=== PATIENT | female | born 1940 | race Caucasian/White ===

== ENCOUNTER 2017-06-23 19:08 | Inpatient (IN) | payer MEDICARE, OTHER ==
[~2017-06-23] VITALS: Ht 162.6 cm; Wt 101.2 kg
[2017-06-23] VITALS: BP 150/80
--- NOTE | 2017-06-23 19:23 | NUR ---
76 YO FEMALE BB FAMILY. PT IS ALERT X 3, PER FAMILY PT HAS HAD RIGHT LOWER LEG WEAKNESS SINCE 8AM WITH SLURRED SPEECH. PT AMBULATED TO ER BED 3 WITH STEADY GAIT WITH USE OF WALKER. PT IS MOVING ALL AXTREMITIES FREELY, AWAITING ORDERS FROM PROVIDER
[2017-06-23 19:36] LABS: BASOPHILS % (AUTO) 0.5 % (0.0-2.0); EOSINOPHILS # (AUTO) 0.1 /CMM (0.0-0.7); HEMATOCRIT 40 % (33-45); HEMOGLOBIN 13.1 g/dL (11.5-14.8); LYMPHOCYTES # (AUTO) 1.2 /CMM (0.8-4.8); LYMPHOCYTES % (AUTO) 25.8 % (20.0-44.0); MEAN CORPUSCULAR HEMOGLOBIN 28 PG (26.0-33.0); MEAN CORPUSCULAR HGB CONC 33 g/dl (31.0-36.0); MEAN CORPUSCULAR VOLUME 84 fL (82-100); MONOCYTES # (AUTO) 0.4 /CMM (0.1-1.30); MONOCYTES % (AUTO) 7.9 % (2.0-12.0); NEUTROPHILS # (AUTO) 3.1 /CMM (1.8-8.9); NEUTROPHILS % (AUTO) 63.8 % (43.0-81.0); PLATELET COUNT (AUTO) 168 /CMM (150-450); RDW COEFFICIENT OF VARIATION 13.6 (11.5-15.0); WHITE BLOOD COUNT (AUTO) 4.8 K/uL (4.3-11.0)
[2017-06-23 19:44] LABS: CALCIUM, SERUM 8.8 mg/dL (8.5-10.1); CARBON DIOXIDE 28 mmol/L (21-32); CHLORIDE 107 mmol/L (98-107); GLUCOSE 109 mg/dL (74-106); POTASSIUM 4.2 mmol/L (3.5-5.1); SODIUM SERUM 142 mmol/L (136-145); UREA NITROGEN, BLOOD 23 mg/dL (7-18)
--- NOTE | 2017-06-23 19:45 | NUR ---
RADIOLOGY TEAM AT BED SIDE FOR CHEST X RAY
[2017-06-23 19:48] LABS: INR 0.96 (0.87-1.13)
[2017-06-23 19:56] LABS: TROPONIN I < 0.017 ng/mL (0.00-0.056)
--- NOTE | 2017-06-23 20:01 | NUR ---
PT TRANSPORTED TO CT VIA GURNEY BY RADIOLOGY TEAM
--- NOTE | 2017-06-23 20:21 | NUR ---
VITAL SIGNS UPDATED.
--- NOTE | 2017-06-23 20:42 | NUR ---
PAGED FORREST NICHOLSON DNP FOR PANEL ADMISSION
[2017-06-23] MEDS ORDERED: ASPIRIN 325 MG TABLET PO ONE (21:00)
[2017-06-23] MEDS ORDERED: ASPIRIN 325 MG TABLET ONE (21:15)
[2017-06-23 21:30] VITALS: BP 147/88
--- NOTE | 2017-06-23 21:37 | NUR ---
TRANSPORTWED PT TO TELE BED WITHOUT INCIDENT
[2017-06-23 21:45] VITALS: BP 147/88
--- NOTE | 2017-06-23 21:45 | NUR ---
PLANNING ENGINEER NOTE RECEIVED PATIENT AWAKE ALERT AND ORIENTED IN BED. DAUGHTER AND GRAND-DAUGHTER AT BEDSIDE. NO SOB OR RESPIRATORY DISTRESS NOTED. ASSESSED PATIENT THOROUGHLY. PER PATIENT, HER RIGHT LEG AND RIGHT HAND HAS BEEN TINGLING SINCE THIS MORNING, ALL EXTREMITIES STRONG. SLIGHT RIGHT SIDED DYSMETRIA WHEN ASKED TO TOUCH FINGER TO NOSE. SMILE IS SYMMETRICAL. NO DROOPING NOTED. NON PITTING EDEMA NOTED TO BILATERAL LEGS AND FEET. IV SITE INTACT WITH NO REDNESS NOTED. SKIN INTACT, WITH NO BREAKDOWN OR BRUISING NOTED. ALL BELONGINGS CHECKED AND ACCOUNTED FOR. MEDICATION RECONCILIATION DONE. ORIENTED TO ROOM AND TO UNIT. BED LOCKED AND IN LOWEST POSITION. SIDE RAILS UP, CALL LIGHT WITHIN REACH.
--- NOTE | 2017-06-23 22:00 | NUR ---
POLICE RECORDS CLERK NOTE PER FORREST NICHOLSON, DO NOT GIVE ANY CHEMICAL PROPHYLAXIS FOR 48HRS.
[2017-06-23] MEDS ORDERED: FLUT1DIS3 INH (22:09)
[2017-06-23] MEDS ORDERED: DICL100G3 TP (22:09)
[2017-06-23] MEDS ORDERED: METO-304 PO (22:09)
[2017-06-23] MEDS ORDERED: SOLI10TA PO (22:09)
[2017-06-23] MEDS ORDERED: TRAM50TA2 PO (22:09)
[2017-06-23] MEDS ORDERED: ESCI20TA PO (22:09)
[2017-06-23] MEDS ORDERED: DEXL60CA3 PO (22:09)
[2017-06-23] MEDS ORDERED: MEMA10TA PO (22:09)
[2017-06-23] MEDS ORDERED: AMLO1CAP9 PO (22:09)
[2017-06-23] MEDS ORDERED: FURO20TA4 PO (22:09)
--- NOTE | 2017-06-23 22:15 | NUR ---
AUTO PHONE INSTALLER NOTE DR. FORREST NICHOLSON AT BEDSIDE.
--- NOTE | 2017-06-23 22:35 | NUR ---
WORKERS COMPENSATION CLAIMS ADJUSTER NOTE CODE STROKE CALLED PER FORREST NICHOLSON. ACTIVATED. DISTRICT GAUGER, ER STAFF, CODE STROKE TEAM ARRIVED. NEED STAT CTA.
--- NOTE | 2017-06-23 22:40 | NUR ---
CLASSIFIER OPERATOR NOTE CHARGE NURSE PLACED CALL TO [facility]. INFORMATION GIVEN.
[2017-06-23 22:45] VITALS: BP 145/75
--- NOTE | 2017-06-23 22:45 | NUR ---
MACHINE SOLE LEVELER NOTE NECESSARY INFORMATION, LABS, AND CT RESULTS FAXED TO [facility]. PATIENT LEFT FOR CTA.
--- NOTE | 2017-06-23 23:00 | NUR ---
AUTOMOTIVE FLEET SUPERVISOR NOTE PER [facility]ATSON, CCT, FAX RESULTS OF CTA ONCE AVAILABLE.
[2017-06-23] MEDS ORDERED: CT SWABBABLE VALVE TRANS SET 1 EA INFUS.SET MC ONE (23:07)
[2017-06-23] MEDS ORDERED: IOHEXOL-350 100 ML VIAL IV ONE (23:07)
[2017-06-23] MEDS ORDERED: IV NS 0.9% 250 ML IV ONE (23:07)
--- NOTE | 2017-06-23 23:25 | NUR ---
FUEL ATTENDANT NOTE PATIENT STILL IN NUCLEAR MEDICINE.
--- NOTE | 2017-06-23 23:30 | NUR ---
CAMPUS RECRUITING INTERN NOTE PATIENT CAME BACK FROM CTA. RESULTS PENDING.
[2017-06-23 23:31] LABS: BASOPHILS % (AUTO) 0.6 % (0.0-2.0); EOSINOPHILS # (AUTO) 0.1 /CMM (0.0-0.7); EOSINOPHILS % (AUTO) 2.3 % (0.0-6.0); HEMATOCRIT 37 % (33-45); HEMOGLOBIN 12.2 g/dL (11.5-14.8); LYMPHOCYTES # (AUTO) 1.4 /CMM (0.8-4.8); LYMPHOCYTES % (AUTO) 30.9 % (20.0-44.0); MEAN CORPUSCULAR HEMOGLOBIN 28 PG (26.0-33.0); MEAN CORPUSCULAR HGB CONC 33 g/dl (31.0-36.0); MEAN CORPUSCULAR VOLUME 84 fL (82-100); MONOCYTES # (AUTO) 0.4 /CMM (0.1-1.30); MONOCYTES % (AUTO) 8.6 % (2.0-12.0); NEUTROPHILS # (AUTO) 2.6 /CMM (1.8-8.9); NEUTROPHILS % (AUTO) 57.6 % (43.0-81.0); PLATELET COUNT (AUTO) 151 /CMM (150-450); RDW COEFFICIENT OF VARIATION 14.1 (11.5-15.0); WHITE BLOOD COUNT (AUTO) 4.6 K/uL (4.3-11.0)
[2017-06-23 23:42] LABS: CALCIUM, SERUM 8.5 mg/dL (8.5-10.1); CARBON DIOXIDE 27 mmol/L (21-32); CHLORIDE 110 mmol/L (98-107); CREATININE 0.8 mg/dL (0.6-1.3); GLUCOSE 103 mg/dL (74-106); POTASSIUM 4.2 mmol/L (3.5-5.1); SODIUM SERUM 145 mmol/L (136-145); UREA NITROGEN, BLOOD 21 mg/dL (7-18)
[2017-06-23 23:46] LABS: INR 0.96 (0.87-1.13); PROTHROMBIN TIME 10.3 SECS (9.5-12.7)
[2017-06-23 23:51] LABS: TROPONIN I < 0.017 ng/mL (0.00-0.056)
--- NOTE | 2017-06-24 00:05 | NUR ---
COUNSELING DIRECTOR NOTE CALLED XRAY. NO RESULTS YET.
--- NOTE | 2017-06-24 00:35 | NUR ---
VEHICLE WASHER NOTE PER ICU CHARGE NURSE, SHE SPOKE TO FORREST NICHOLSON. HE IS AWARE OF CTA RESULTS, AND SPOKE TO [facility] NEUROLOGIST. NO FURTHER ORDERS RECEIVED AT THIS TIME. AWAITING FOR FORREST NICHOLSON TO INSERT MIDLINE.
--- NOTE | 2017-06-24 01:10 | NUR ---
WASTE MACHINE OFFBEARER NOTE FORREST NICHOLSON INSERTED MIDLINE 10CM TO LEFT BASILIC ARTERY AT BEDSIDE. PATIENT TOLERATED WELL.
[2017-06-24] MEDS ORDERED: ONDANSETRON HCL/PF 4 MG/2 ML VIAL IVP PRN (02:00)
[2017-06-24] MEDS ORDERED: TRAMADOL HCL 50 MG TABLET PO PRN (02:00)
[2017-06-24] MEDS ORDERED: Z GUARD REMEDY 2 OZ OINT TP PRN (02:00)
[2017-06-24] MEDS ORDERED: ACETAMINOPHEN 325 MG TABLET PO PRN (02:00)
[2017-06-24 04:00] VITALS: BP 123/67
[2017-06-24] MEDS: IV NS 0.9% 1,000 ML IV PRN ×2 (05:46→22:13)
--- NOTE | 2017-06-24 06:30 | NUR ---
MICROSOFT BI DEVELOPER NOTE PATIENT STABLE. NO DEFICITS NOTED. NO SLURRED SPEECH. PATIENT ABLE TO AMBULATE TO BATHROOM WITH ASSISTANCE. WILL ENDORSE TO DAY SHIFT FOR CUAUHTEMOC.
[2017-06-24 07:04] LABS: APPEARANCE,URINE CLEAR (CLEAR); BILIRUBIN,URINE NEGATIVE (NEGATIVE); BLOOD, URINE NEGATIVE Ery/uL (NEGATIVE); COLOR,URINE YELLOW (YELLOW); KETONES,URINE NEGATIVE (NEGATIVE); LEUKOCYTE ESTERASE ,URINE NEGATIVE (NEGATIVE); NITRITE, URINE NEGATIVE (NEGATIVE); PROTEIN,URINE NEGATIVE (NEGATIVE); UGLUCOSE NEGATIVE (NEGATIVE); UROBILINOGEN,URINE 0.2 EU/dL (0.2)
--- NOTE | 2017-06-24 07:10 | NUR ---
DRAWER WAXER NOTES PATIENT ALERT AND ORIENTED X4, SPEAKS MALAY, NO SLURRED SPEECH NOTED, NO FACIAL DROOPING, ALL EXTREMITIES WNL, NOT IN ANY DISTRESS NOTED, IVF INFUSING AND TOLERATING WELL, NEEDS ATTENDED AND MET, CALL LIGHT WITHIN REACH, LOW BED AND LOCKED, SIDERAILS X2 UP, WILL CONTINUE TO MONITOR.
--- NOTE | 2017-06-24 07:40 | NUR ---
MANAGER PEDIATRIC NOTES PATIENT SEEN AND EXAMINED BY DR. PALUMBO.
[2017-06-24 08:21] LABS: THYROID STIMULATING HORMONE 8.224 uIU/mL (0.358-3.74)
[2017-06-24] MEDS: BENAZEPRIL HCL 20 MG TABLET PO SCH (08:56)
[2017-06-24] MEDS: ASPIRIN EC 81 MG TABLET.DR PO SCH (08:56)
[2017-06-24] MEDS: FLUTICASONE/VILANTEROL 1 EACH BLST.W.DEV IH SCH (08:56)
[2017-06-24] MEDS: MEMANTINE HCL 5 MG TABLET PO SCH ×3 (08:57→17:08)
[2017-06-24] MEDS: METOPROLOL SUCCINATE 50 MG TAB.SR.24H PO SCH (08:57)
[2017-06-24] MEDS: ESCITALOPRAM OXALATE (10 MG) 10 MG TABLET PO SCH (08:57)
[2017-06-24] MEDS: AMLODIPINE BESYLATE 5 MG TABLET PO SCH (08:57)
[2017-06-24] MEDS: OXYBUTYNIN CHLORIDE 5 MG TABLET PO SCH ×3 (08:57→17:08)
[2017-06-24] MEDS: ATORVASTATIN 40 MG TABLET PO SCH (09:00)
[2017-06-24] MEDS ORDERED: FUROSEMIDE 20 MG TABLET PO SCH (09:00)
--- NOTE | 2017-06-24 11:02 | NUR ---
Social service consult requested by Dr. Ruiz for TIA. Pt. is a 76 year old female who was admitted to [facility] on . Pt. is Bulgarian speaking. BART met with pt's daughter Barbara alva. According the Kelly, this is patient's first stroke. Pt. lives alone. Pt's is . Pt. has two daughters Barbara and Yo. Pt. has family support from both her daughters. Pt. does not want to go to a prison facility and would like to go home with home health. BART informed Barbara she will inform lining caser Kristine regarding their discharge plan. No other social service needs are required at this time. SW is available if needed. BART informed lining caser Kristine regarding pt. wanting to go home with home health.
[2017-06-24 12:00] VITALS: BP 149/79
--- NOTE | 2017-06-24 14:00 | NUR ---
MEDICAL SALES SPECIALIST NOTES RECEIVED MRI RESULT AND CALLED DR. KEITH, LEFT A MESSAGE WITH HER OFFICE STAFF, ALSO INFORMED DR. ZAVALETA, AWAITING FOR ORDERS. PATIENT ALERT AND ORIENTED X3, NO DISTRESS NOTED, STROKE SCALE COMPLETED, NO CHANGES, NO APHASIA/ SLURRING OF THE SPEECH NOTED, NO FACIAL DROOPING, MOTOR FUNCTIONS INTACT, SENSORY MILD LOSS ON RIGHT ARM, ALL NEEDS ATTENDED AND MET, CALL LIGHT WITHIN REACH, FAMILY AT BEDSIDE, SAFETY PRECAUTIONS OBSERVED, WILL CONTINUE TO MONITOR.
[2017-06-24 16:02] VITALS: BP 149/73
--- NOTE | 2017-06-24 17:20 | NUR ---
SPECIAL POLICE NOTES STROKE PREVENTION EDUCATION DISCUSSED WITH FAMILY AND PATIENT.
--- NOTE | 2017-06-24 18:38 | NUR ---
COLLEGE INTERN NOTES PATIENT ALERT AND ORIENTED, NO DISTRESS NOTED, FAMILY AT BEDSIDE, DISCUSSED STROKE PREVENTION EDUCATION, DENIES PAIN OR HEADACHE AT THIS TIME, NO SOB NOTED, ON O2 AT 2LPM VIA NC TO KEEP O2SAT 92%, ALL DUE MEDICATIONS PROVIDED, PATIENT REFUSED NAMENDA, ALL NEEDS ATTENDED, RECEIVED ASSISTANCE WITH ADLS, CALL LIGHT WITHIN REACH, SAFETY PRECAUTIONS IN PLACED, WILL ENDORSE TO CIRCULAR TANK COOPER FOR CUAUHTEMOC.
--- NOTE | 2017-06-24 19:30 | NUR ---
RN NOTES RECEIVED PATIENT IN BED AWAKE, AO X 3, ABLE TO MAKE NEEDS KNOWN. NO ACUTE DISTRESS NOTED. DENIES ANY PAIN AT THIS TIME. IV SITE PATENT, INTACT; IVF INFUSING ORDERED. SAFETY REMINDERS GIVEN. ON LOW BED WITH BILATERAL UPPER SIDE RAILS UP. BED ALARM ON. CALL LIGHT WITHIN EASY REACH. WILL CONTINUE TO MONITOR. Addendum: 06/25/17 at 0556 by DANIELLE UMANZOR RN TELE READING SR HR 60 WITH BBB
[2017-06-24 20:00] VITALS: BP 118/75
[2017-06-24] MEDS ORDERED: SENNOSIDES 8.6 MG TABLET ONE (21:43)
[2017-06-24] MEDS: SENNOSIDES 8.6 MG TABLET PO SCH (22:07)
[2017-06-25] VITALS (8 sets, daily range): BP systolic 120–133; BP diastolic 60–79
--- NOTE | 2017-06-25 06:22 | NUR ---
RN NOTES PATIENT IN BED WITH EYES CLOSED; RESPIRATIONS EVEN. NO SIGNS OF PAIN NOTED. DUE MEDS GIVEN WITH NO ASE NOTED. NEEDS ATTENDED. SAFETY PRECAUTIONS AND COMFORT MEASURES IN PLACE. WILL GIVE REPORT TO DAY SHIFT FOR CONTINUITY OF CARE.
[2017-06-25 06:49] LABS: BASOPHILS % (AUTO) 0.3 % (0.0-2.0); EOSINOPHILS # (AUTO) 0.1 /CMM (0.0-0.7); EOSINOPHILS % (AUTO) 2.7 % (0.0-6.0); HEMATOCRIT 37 % (33-45); HEMOGLOBIN 12.2 g/dL (11.5-14.8); LYMPHOCYTES # (AUTO) 1.3 /CMM (0.8-4.8); LYMPHOCYTES % (AUTO) 27.6 % (20.0-44.0); MEAN CORPUSCULAR HEMOGLOBIN 28 PG (26.0-33.0); MEAN CORPUSCULAR HGB CONC 33 g/dl (31.0-36.0); MEAN CORPUSCULAR VOLUME 84 fL (82-100); MONOCYTES # (AUTO) 0.4 /CMM (0.1-1.30); MONOCYTES % (AUTO) 9.1 % (2.0-12.0); NEUTROPHILS # (AUTO) 2.7 /CMM (1.8-8.9); NEUTROPHILS % (AUTO) 60.3 % (43.0-81.0); PLATELET COUNT (AUTO) 136 /CMM (150-450); RDW COEFFICIENT OF VARIATION 14.6 (11.5-15.0); RED BLOOD CELL COUNT(AUTO) 4.35 MIL/uL (4.0-5.2); WHITE BLOOD COUNT (AUTO) 4.6 K/uL (4.3-11.0)
[2017-06-25 07:21] LABS: ALANINE AMINOTRANSFERASE 29 U/L (12-78); ALBUMIN 3.1 g/dL (3.4-5.0); ALKALINE PHOSPHATASE 86 U/L (46-116); ASPARTATE AMINOTRANSFERASE 20 U/L (15-37); BILIRUBIN,TOTAL 0.5 mg/dL (0.2-1.0); CALCIUM, SERUM 8.1 mg/dL (8.5-10.1); CARBON DIOXIDE 27 mmol/L (21-32); CHLORIDE 109 mmol/L (98-107); CREATININE 0.8 mg/dL (0.6-1.3); GLUCOSE 98 mg/dL (74-106); MAGNESIUM 1.8 mg/dL (1.8-2.4); PHOSPHORUS 3.7 mg/dL (2.5-4.9); POTASSIUM 4.3 mmol/L (3.5-5.1); SODIUM SERUM 144 mmol/L (136-145); TOTAL PROTEIN, SERUM 6.1 g/dL (6.4-8.2); UREA NITROGEN, BLOOD 15 mg/dL (7-18)
[2017-06-25 07:23] LABS: CHOLESTEROL 184 mg/dL (<200); HDL CHOLESTEROL 43 mg/dL (40-60); LDL 123 mg/dL (0-99); THYROID STIMULATING HORMONE 6.197 uIU/mL (0.358-3.74); TRIGLYCERIDES 127 mg/dL (30-150)
--- NOTE | 2017-06-25 07:45 | NUR ---
PHARMACY GENERAL MANAGER NOTES PATIENT ALERT AND ORIENTED, NOT IN ANY DISTRESS, NO SOB NOTED, EATING BREAKFAST AND TOLERATING WELL, COMPLAINTS OF HEADACHE 1/10, ABLE TO TOLERATE WITHOUT ANY PAIN MEDICATION AT THIS TIME, NEEDS ATTENDED AND MET, CALL LIGHT WITHIN REACH, SAFETY MEASURES IN PLACED, WILL CONTINUE TO MONITOR.
[2017-06-25] MEDS: ESCITALOPRAM OXALATE (10 MG) 10 MG TABLET PO SCH (08:48)
[2017-06-25] MEDS: FLUTICASONE/VILANTEROL 1 EACH BLST.W.DEV IH SCH (08:48)
[2017-06-25] MEDS: OXYBUTYNIN CHLORIDE 5 MG TABLET PO SCH ×3 (08:48→17:18)
[2017-06-25] MEDS: ASPIRIN EC 81 MG TABLET.DR PO SCH (08:48)
[2017-06-25] MEDS: BENAZEPRIL HCL 20 MG TABLET PO SCH (08:49)
[2017-06-25] MEDS: METOPROLOL SUCCINATE 50 MG TAB.SR.24H PO SCH (08:49)
[2017-06-25] MEDS: AMLODIPINE BESYLATE 5 MG TABLET PO SCH (08:50)
[2017-06-25] MEDS: MEMANTINE HCL 5 MG TABLET PO SCH ×2 (08:51→17:00)
[2017-06-25] MEDS: ATORVASTATIN 40 MG TABLET PO SCH (09:28)
--- NOTE | 2017-06-25 11:39 | NUR ---
RN MS NOTES RECEIVED A NEW ORDER FROM DR. ZAVALETA TO START PATIENT ON LOVENOX 40MG QD, ORDER NOTED AND CARRIED OUT.
[2017-06-25] MEDS: ENOXAPARIN SODIUM 40 MG/0.4 ML DISP.SYRIN SQ SCH (12:19)
[2017-06-25] MEDS ORDERED: MAGNESIUM HYDROXIDE 30 ML UDC PO ONE (12:30)
[2017-06-25] MEDS ORDERED: MAGNESIUM HYDROXIDE 30 ML UDC PO PRN (12:30)
--- NOTE | 2017-06-25 18:30 | NUR ---
RN MS NOTES PATIENT ALERT AND ORIENTED, NO DISTRESS NOTED, FAMILY AT BEDSIDE, STROKE PREVENTION TEACHING DONE, DENIES PAIN OR HEADACHE AT THIS TIME, NO SOB NOTED, IN ROOM AIR WITH SPO2 93%-94%, PER PATIENT AND FAMILY, SHE'S REFUSING TO GO TO REHAB TOMORROW AND PREFERS TO BE DISCHARGED HOME, ALL DUE MEDICATIONS PROVIDED, PATIENT REFUSED NAMENDA, ALL NEEDS ATTENDED, RECEIVED ASSISTANCE WITH ADLS, CALL LIGHT WITHIN REACH, SAFETY PRECAUTIONS IN PLACED, WILL ENDORSE TO LEAD NUCLEAR MEDICINE TECHNOLOGIST FOR CUAUHTEMOC.
--- NOTE | 2017-06-25 19:30 | NUR ---
RN NOTES RECEIVED PATIENT IN BED AWAKE, AO X 3, ABLE TO MAKE NEEDS KNOWN. NO ACUTE DISTRESS NOTED. DENIES ANY PAIN AT THIS TIME. RJ MIDLINE PATENT, INTACT; FLUSHED. SAFETY REMINDERS GIVEN. ON LOW BED WITH BILATERAL UPPER SIDE RAILS UP. BED ALARM ON. CALL LIGHT WITHIN EASY REACH. WILL CONTINUE TO MONITOR. FAMILY AT BEDSIDE.
[2017-06-25] MEDS: SENNOSIDES 8.6 MG TABLET PO SCH (22:00)
--- NOTE | 2017-06-26 06:25 | NUR ---
RN NOTES PATIENT IN BED WITH EYES CLOSED; RESPIRATIONS EVEN. NO SIGNS OF PAIN NOTED. NEEDS ATTENDED. KEPT CLEAN, DRY AND COMFORTABLE. SAFETY PRECAUTIONS AND COMFORT MEASURES IN PLACE. WILL GIVE REPORT TO DAY SHIFT FOR CONTINUITY OF CARE.
--- NOTE | 2017-06-26 07:10 | NUR ---
RN Initial Notes: Received patient resting in bed. Patient alert oriented x4. Non-labored breathing noted. No signs of distress. Midline on left upper arm patent and intact. Patient on room air. Bed in lowest/locked position. Call light within reach. Will continue to monitor.
[2017-06-26 08:00] VITALS: BP 136/70
[2017-06-26] MEDS: FLUTICASONE/VILANTEROL 1 EACH BLST.W.DEV IH SCH (09:02)
[2017-06-26] MEDS: OXYBUTYNIN CHLORIDE 5 MG TABLET PO SCH (09:03)
[2017-06-26] MEDS: ATORVASTATIN 40 MG TABLET PO SCH (09:03)
[2017-06-26] MEDS: ASPIRIN EC 81 MG TABLET.DR PO SCH (09:03)
[2017-06-26] MEDS: BENAZEPRIL HCL 20 MG TABLET PO SCH (09:04)
[2017-06-26] MEDS: MEMANTINE HCL 5 MG TABLET PO SCH (09:05)
[2017-06-26] MEDS: ESCITALOPRAM OXALATE (10 MG) 10 MG TABLET PO SCH (09:05)
[2017-06-26] MEDS: METOPROLOL SUCCINATE 50 MG TAB.SR.24H PO SCH (09:05)
[2017-06-26 09:20] VITALS: BP 136/70
[2017-06-26] MEDS: AMLODIPINE BESYLATE 5 MG TABLET PO SCH (09:20)
[2017-06-26] MEDS: ENOXAPARIN SODIUM 40 MG/0.4 ML DISP.SYRIN SQ SCH (09:23)
[2017-06-26] MEDS ORDERED: ATOR40TA PO (10:13)
[2017-06-26] MEDS ORDERED: ASPI-991 PO (10:13)
--- NOTE | 2017-06-26 12:35 | NUR ---
MS RN CLOSING NOTES Patient discharged home per MD orders. Patient stable. Non-labored breathing noted. Patient denies pain. Valuables given to patient. Discharge instructions and medication list given to patient. Patient and son educated on following up with primary care provider within 1 week, educated on medication list, and educated on signs and symptoms of stroke. Midline taken out. No adverse reactions noted. Prescription given to son and patient Patient refused to have picture taken of bruise. Patient educated on vaccines. Patient refused the pneumococcal vaccine. Patient left with son.
== END 2017-06-26 12:32 | disposition home health service (06) | DRG 64 ==
LOC: ER 19:11 → TELE 20:39 → MED 06-25 16:00
PROVIDERS: ADMIT Nurse Practitioner Acute Care; ATTEND Nurse Practitioner Acute Care
PROC: 05HC33Z Insertion of Infusion Device into Left Basilic Vein, Percutaneous Approach (ICD-10-PCS; principal; 2017-06-24)
PROC: B54NZZA Ultrasonography of Left Upper Extremity Veins, Guidance (ICD-10-PCS; 2017-06-24)
DX: I63.9 Cerebral infarction, unspecified (principal); N17.0 Acute kidney failure with tubular necrosis; I50.32 Chronic diastolic (congestive) heart failure; E44.0 Moderate protein-calorie malnutrition; G81.91 Hemiplegia, unspecified affecting right dominant side; E03.9 Hypothyroidism, unspecified; E78.5 Hyperlipidemia, unspecified; E66.01 Morbid (severe) obesity due to excess calories; I49.5 Sick sinus syndrome; I11.0 Hypertensive heart disease with heart failure; Z91.81 History of falling; Z68.38 Body mass index [BMI] 38.0-38.9, adult; Z82.49 Family history of ischemic heart disease and other diseases of the circulatory system
CPT/HCPCS: 36415; 36569; 70450-TC; 70496-TC; 70498-TC; 70551-TC; 71010-TC; 80048-TC; 80053-TC; 80061-TC; 81000-TC; 82306; 82728-TC; 82962-TC; 83540-TC; 83735-TC; 84100-TC; 84439-TC; 84443-TC; 84484-TC; 85025-TC; 85730-TC; 86850-TC; 87081-TC; 92521; 93307-TC; A4606; J1650; J7030; J7050; Q9967; Z7610

== ENCOUNTER 2020-09-25 13:49 | Inpatient (IN) | payer MEDICARE, OTHER ==
[~2020-09-25] VITALS: Ht 157.5 cm; Wt 90.7 kg
[~2020-09-25 13:49] MED LIST: AMLO-102 PO; ASPI-1420 PO; ATOR40TA PO; DEXL60CA3 PO; DICL100G16 TP; ESCI20TA PO; FLUT1DIS3 INH; FURO20TA4 PO; MEMA10TA PO; METO-357 PO; SOLI10TA2 PO; TRAM50TA2 PO
--- NOTE | 2020-09-25 14:55 | NUR ---
BIBDAUGTHER FROM HOME TO ER BED 5. AAOX4. NOT IN RESP DISTRESS, BREATHING EVEN AND UNLABORED. BROUGHT IN FOR SORE THROAT, BODY ACHE AND FEVER. PT IS AFEBRILE UPON PRESENTATION. PT IS ALSO NOTED WITH PRODUCTIVE COUGH. DAUGHTER REPORTS THAT SHE HAS BEEN LIKE THIS FOR THE PAST 2 DAYS. WAS AT THE BEDSIDE FOR EVAL. ORDERS RECEIVED, NOTED AND CARRIED OUT. IV LINE ESTABLISHED ON L AC 20G. BLOOD DRAWN AND GIVEN TO PETROLOGIST AT BEDSIDE. PT PLACED ON MONITOR.
[2020-09-25 14:58] LABS: BASOPHILS % (AUTO) 0.4 % (0.0-2.0); EOSINOPHILS % (AUTO) 0.1 % (0.0-6.0); HEMATOCRIT 37 % (33-45); LYMPHOCYTES # (AUTO) 0.8 /CMM (0.8-4.8); LYMPHOCYTES % (AUTO) 27.7 % (20.0-44.0); MEAN CORPUSCULAR HGB CONC 33 g/dl (31.0-36.0); MEAN CORPUSCULAR VOLUME 87 fL (82-100); MONOCYTES # (AUTO) 0.3 /CMM (0.1-1.30); MONOCYTES % (AUTO) 11.3 % (2.0-12.0); NEUTROPHILS # (AUTO) 1.8 /CMM (1.8-8.9); NEUTROPHILS % (AUTO) 60.5 % (43.0-81.0); PLATELET COUNT (AUTO) 108 /CMM (150-450); RED BLOOD CELL COUNT(AUTO) 4.22 MIL/uL (4.0-5.2)
--- NOTE | 2020-09-25 14:58 | NUR ---
COVID SWAB DONE AND SENT TO LAB
[2020-09-25 15:20] LABS: CALCIUM, SERUM 8.4 mg/dL (8.5-10.1); CREATININE 0.9 mg/dL (0.6-1.3); POTASSIUM 3.7 mmol/L (3.5-5.1)
[2020-09-25] MEDS ORDERED: AZITHROMYCIN 500 MG in IV D5W 250 ML IV ONE (17:30)
[2020-09-25] MEDS ORDERED: CEFTRIAXONE 1 G in IV D5W 50 ML IV ONE (17:30)
--- NOTE | 2020-09-25 17:49 | NUR ---
CALLED NURSING SUP FOR TELE BED.
--- NOTE | 2020-09-25 17:57 | NUR ---
DAUGHTER NARDA NOTIFIED THAT THE HER MOM IS STAYING IN THE HOSPITAL
--- NOTE | 2020-09-25 18:21 | NUR ---
BED 103
[2020-09-25] MEDS ORDERED: ONDANSETRON HCL/PF 4 MG/2 ML VIAL IVP PRN (18:30)
[2020-09-25] MEDS ORDERED: MAGNESIUM HYDROXIDE 30 ML UDC PO PRN (18:30)
[2020-09-25] MEDS ORDERED: MAG HYDROX/AL HYDROX/SIMETH 30 ML UDC PO PRN (18:30)
[2020-09-25] MEDS ORDERED: Z GUARD REMEDY 2 OZ OINT TP PRN (18:30)
[2020-09-25] MEDS ORDERED: ERGO500014 PO (18:32)
[2020-09-25] MEDS ORDERED: ASPI-1420 PO (18:32)
[2020-09-25] MEDS ORDERED: LEVO50TA8 PO (18:32)
--- NOTE | 2020-09-25 18:32 | NUR ---
report given to stephanie arcos. awaiting transfer to floor.
[2020-09-25] MEDS ORDERED: OMEP1CAP25 PO (18:33)
--- NOTE | 2020-09-25 19:14 | NUR ---
PT TRANSPORTED TO UNIT ON [facility] WITH EMT AND RN AT BEDSIDE W/ ACLS PROTOCOL. NAD NOTED WHILE BEING TRANSPORTED. PT AMBULATED FROM GURNEY TO BED.
--- NOTE | 2020-09-25 19:30 | NUR ---
part time flexible clerkreceiving dock checker note Admitted a 80yrs old female with admitting dx of covid 19 pneumonia. Pt fullcode with nkda. Pt a/o x4 . Divehi speaking. Can understand a little of dutch. Breathing even and unlabored with no sob or acute distress noted. Denies any pain or discomfort. Left ac #20 patent and intact. Skin intact. Belongings inventory done. Spoke with pharmacy that patient is taking vesicare and volcaren gel and to brings meds from home. Spoke with Daugther regarding medication and per daughter her mother doesn't take the meds and she doesn' t have to be on the meds while in the hospital. Pharmacy notified. Pt comfortable in bed. All needs rendered. Call light within reach. Srx2 up. Will continue to monitor.
[2020-09-25 20:00] VITALS: BP 159/82
[2020-09-25] MEDS: ENOXAPARIN SODIUM 40 MG/0.4 ML DISP.SYRIN SQ SCH (20:47)
[2020-09-25] MEDS ORDERED: DICLOFENAC TOPICAL 100 GM GEL..GM. TP SCH (21:00)
[2020-09-25 22:22] LABS: D-DIMER 0.87 mg/L(FEU (0.17-0.50)
[2020-09-26] VITALS: BP 120/69
[2020-09-26 04:00] VITALS: BP 149/60
[2020-09-26 06:33] LABS: BASOPHILS % (AUTO) 0.3 % (0.0-2.0); HEMATOCRIT 36 % (33-45); LYMPHOCYTES # (AUTO) 0.8 /CMM (0.8-4.8); LYMPHOCYTES % (AUTO) 31.1 % (20.0-44.0); MEAN CORPUSCULAR HGB CONC 33 g/dl (31.0-36.0); MEAN CORPUSCULAR VOLUME 85 fL (82-100); MONOCYTES # (AUTO) 0.2 /CMM (0.1-1.30); MONOCYTES % (AUTO) 7.8 % (2.0-12.0); NEUTROPHILS # (AUTO) 1.5 /CMM (1.8-8.9); NEUTROPHILS % (AUTO) 60.8 % (43.0-81.0); PLATELET COUNT (AUTO) 97 /CMM (150-450); RED BLOOD CELL COUNT(AUTO) 4.24 MIL/uL (4.0-5.2); WHITE BLOOD COUNT (AUTO) 2.5 K/uL (4.3-11.0)
--- NOTE | 2020-09-26 06:41 | NUR ---
leadership program internship closing note Patient in bed, sleeping but easily arousable. A/0 x4. Breathing even and unlabored with no sob or acute distress noted. Denies any pain or discomfort. Left ac 20 patent and intact. All needs rendered. Call light within reach. Srx2 up. Bed in lowest position. Will endorse to am nurse for continuity of care.
[2020-09-26 07:25] LABS: ALBUMIN 3.2 g/dL (3.4-5.0); BILIRUBIN,DIRECT 0.1 mg/dL (0.0-0.2); BILIRUBIN,TOTAL 0.3 mg/dL (0.2-1.0); CALCIUM, SERUM 8.3 mg/dL (8.5-10.1); CREATININE 0.8 mg/dL (0.6-1.3); TOTAL PROTEIN, SERUM 6.6 g/dL (6.4-8.2)
--- NOTE | 2020-09-26 07:30 | NUR ---
RN OPENING NOTE PATIENT RECEIVED IN BED, RESTING. NO S/S OF DISTRESS AT THIS TIME. PATIENT IS ALERT/ORIENTED X4, VIETNAMESE SPEAKING. ABLE TO MAKE NEEDS KNOWN. TELE READING SHOWS SR BBB WITH HR IN 80S. PATIENT CONTINUES ON CARDIAC DIET. SKIN INTACT. L AC #20G IV INTACT AND PATENT, NO S/S OF INFECTION AT THIS TIME. ALL SAFETY MEASURES IN PLACE PER HOSPITAL POLICY, BED LOCKED IN LOWEST POSITION. CALL LIGHT WITHIN REACH. WILL CONTINUE TO MONITOR AND PROVIDE CARE.
[2020-09-26 07:37] LABS: THYROID STIMULATING HORMONE 2.202 uIU/mL (0.358-3.74)
[2020-09-26 08:00] VITALS: BP 129/71
[2020-09-26] MEDS: ESCITALOPRAM OXALATE (10 MG) 10 MG TABLET PO SCH (08:52)
[2020-09-26] MEDS: BENAZEPRIL HCL 20 MG TABLET PO SCH (08:52)
[2020-09-26] MEDS: MEMANTINE HCL 5 MG TABLET PO SCH ×2 (08:52→16:29)
[2020-09-26] MEDS: METOPROLOL SUCCINATE 50 MG TAB.SR.24H PO SCH (08:52)
[2020-09-26] MEDS: ASPIRIN EC 81 MG TABLET.DR PO SCH (08:53)
[2020-09-26] MEDS: ATORVASTATIN 40 MG TABLET PO SCH (08:53)
[2020-09-26] MEDS: AMLODIPINE BESYLATE 5 MG TABLET PO SCH (08:53)
[2020-09-26] MEDS: PANTOPRAZOLE 40 MG TABLET.DR PO SCH (08:53)
[2020-09-26] MEDS: FUROSEMIDE 20 MG TABLET PO SCH (08:53)
[2020-09-26] MEDS ORDERED: Medication Not On Formulary EA (Solifenacin Succinate (Vesicare) 1 TAB) PO SCH (09:00)
[2020-09-26] MEDS ORDERED: FLUTICASONE/SALMETEROL 1 DISK IH SCH (09:00)
[2020-09-26] MEDS: HYDROCODONE/APAP 5/325MG TABLET PO PRN (09:07)
[2020-09-26] MEDS: FLUTICASONE/VILANTEROL 1 EACH BLST.W.DEV IH SCH (09:48)
[2020-09-26 12:00] VITALS: BP 105/45
--- NOTE | 2020-09-26 14:00 | NUR ---
RN NOTES PT HAS NO S/S OF RESPIRATORY DISTRESS OR SOB AT THIS TIME
[2020-09-26 16:00] VITALS: BP 105/45
[2020-09-26] MEDS: CEFTRIAXONE 1 G in IV D5W 50 ML IV SCH (16:30)
--- NOTE | 2020-09-26 17:05 | NUR ---
RN NOTE - HOME HEALTH CARE SPOKE TO PATIENT'S DAUGHTER OVER THE PHONE. DAUGHTER INFORMED THAT THE PATIENT'S HOME HEALTH AGENCY IS [facility]. DAUGHTER ALSO REQUESTED THAT PHONE CALLS REGARDING PATIENT'S CARE AND ANY QUESTIONS REGARDING THE PATIENT BE MADE TO HER (DAUGHTER NAVARRO - [phone])
[2020-09-26] MEDS: AZITHROMYCIN 500 MG in IV D5W 250 ML IV SCH (17:52)
[2020-09-26] MEDS: FLUTICASONE PROPIONATE 16 GM BOTTLE NS SCH (18:45)
--- NOTE | 2020-09-26 19:10 | NUR ---
RN CLOSING NOTE PATIENT IN BED, RESTING. NO S/S OF DISTRESS AT THIS TIME. PATIENT IS ALERT/ORIENTED X4, MALAY SPEAKING. ABLE TO MAKE NEEDS KNOWN. TELE READING SHOWS SR BBB WITH HR IN 80S. PATIENT CONTINUES ON CARDIAC DIET. SKIN IS INTACT. L AC #20G IV INTACT AND PATENT, NO S/S OF INFECTION AT THIS TIME. ALL NEEDS WERE MET. SAFETY MEASURES ARE IMPLEMENTED PER HOSPITAL POLICY, BED IS IN LOCKED AND IN THE LOWEST POSITION. CALL LIGHT WITHIN THE PATIENT REACH. WILL ENDORSE TO PM NURSE FOR CUAUHTEMOC.
--- NOTE | 2020-09-26 19:20 | NUR ---
RN NOTES, NOTED PATIENT WITH O2 SATURATION LEVEL LOW 80S, NO APPARENT DISTRESS, DENIES PAIN, BUT STATED A LITTLE BIT TROUBLE BREATHING, REPOSITIONED PATIENT, ELEVATED HOB AND O2 CONTINUE IN 80S, PLACED PATIENT AT 3LPM VIA NC, STILL 89-90, TITRATED UP TO 5LPM AND O2 SAT INCREASED TO >95%, WILL CONTINUE TO MONITOR CLOSELY.
[2020-09-26 20:00] VITALS: BP 115/59
[2020-09-26] MEDS: ENOXAPARIN SODIUM 40 MG/0.4 ML DISP.SYRIN SQ SCH (21:20)
--- NOTE | 2020-09-26 23:21 | NUR ---
CODER NOTE PCR + DIE ASSEMBLER SANTHOSH CALLED AND INFORMED PT COVID PCR RESULT IS POSITIVE. NURSE JAMAR INFORMED.
[2020-09-27] VITALS: BP 128/74
--- NOTE | 2020-09-27 00:41 | NUR ---
RN NOTES, flonase ns spray non administered, medication not available contacted diet supervisor and per him medication not available in the hospital at this time, will f/u with pharmacy in am.
[2020-09-27 04:00] VITALS: BP 126/74
[2020-09-27 06:43] LABS: BASOPHILS % (AUTO) 0.2 % (0.0-2.0); HEMATOCRIT 38 % (33-45); HEMOGLOBIN 12.2 g/dL (11.5-14.8); LYMPHOCYTES # (AUTO) 0.6 /CMM (0.8-4.8); LYMPHOCYTES % (AUTO) 28.7 % (20.0-44.0); MEAN CORPUSCULAR HGB CONC 33 g/dl (31.0-36.0); MEAN CORPUSCULAR VOLUME 85 fL (82-100); MONOCYTES # (AUTO) 0.3 /CMM (0.1-1.30); MONOCYTES % (AUTO) 11.5 % (2.0-12.0); NEUTROPHILS # (AUTO) 1.3 /CMM (1.8-8.9); NEUTROPHILS % (AUTO) 59.6 % (43.0-81.0); PLATELET COUNT (AUTO) 91 /CMM (150-450); RED BLOOD CELL COUNT(AUTO) 4.44 MIL/uL (4.0-5.2); WHITE BLOOD COUNT (AUTO) 2.2 K/uL (4.3-11.0)
--- NOTE | 2020-09-27 06:47 | NUR ---
RN CLOSING NOTE, PATIENT IN BED, BREATHING EVEN AND UNLABORED, NO SOB/ACUTE RESPIRATORY DISTRESS, CONTINUE TELE READING SHOWS SR BBB WITH HR IN 70-80S DURING THE NIGHT, PLACED ON 5LPM VIA NC NOW WITH OPTIMAL O2 SAT LEVEL, AFTER THAT PATIENT STABLE AND NO CHANGE IN CONDITION THE REST OF THE NIGHT, FLONASE NS SPRAY NOT AVAILABLE DURING THE NIGHT, WILL ENDORSE TO DAY SHIFT TO ADMINISTER THE 0600 DOSE, SAFETY MEASURES ARE IMPLEMENTED PER HOSPITAL POLICY, BED LOCKED AND LOWEST POSITION, CALL LIGHT WITHIN REACH, WILL CONTINUE ENDORSE CONT RACHID CARE TO ONCOMING NURSE.
[2020-09-27 06:48] LABS: CALCIUM, SERUM 8.3 mg/dL (8.5-10.1); CREATININE 0.8 mg/dL (0.6-1.3); POTASSIUM 4.2 mmol/L (3.5-5.1)
[2020-09-27] MEDS: FLUTICASONE PROPIONATE 16 GM BOTTLE NS SCH ×5 (07:37→23:16)
--- NOTE | 2020-09-27 07:50 | NUR ---
RN OPENING NOTE, PATIENT IS IN BED, BREATHING EVEN AND UNLABORED, NO SOB/ACUTE RESPIRATORY DISTRESS, CONTINUE TELE READING SHOWS SR BBB WITH HR IN 70-80S , PLACED ON 5LPM VIA NC NOW WITH OPTIMAL O2 SAT LEVEL. FLONASE NS SPRAY USING .SAFETY MEASURES ARE IMPLEMENTED PER HOSPITAL POLICY, BED IS IN THE LOCKED AND IN THE LOWEST POSITION. SIDE RAILS ARE UPX2. CALL LIGHT WITHIN REACH, WILL CONTINUE TO MONITOR
[2020-09-27 08:00] VITALS: BP 119/57
[2020-09-27] MEDS: ASPIRIN EC 81 MG TABLET.DR PO SCH (09:36)
[2020-09-27] MEDS: ATORVASTATIN 40 MG TABLET PO SCH (09:36)
[2020-09-27] MEDS: BENAZEPRIL HCL 20 MG TABLET PO SCH (09:36)
[2020-09-27] MEDS: FUROSEMIDE 20 MG TABLET PO SCH (09:36)
[2020-09-27] MEDS: MEMANTINE HCL 5 MG TABLET PO SCH ×2 (09:36→16:26)
[2020-09-27] MEDS: FLUTICASONE/VILANTEROL 1 EACH BLST.W.DEV IH SCH (09:36)
[2020-09-27] MEDS: AMLODIPINE BESYLATE 5 MG TABLET PO SCH (09:36)
[2020-09-27] MEDS: PANTOPRAZOLE 40 MG TABLET.DR PO SCH (09:37)
[2020-09-27] MEDS: METOPROLOL SUCCINATE 50 MG TAB.SR.24H PO SCH (09:37)
[2020-09-27] MEDS: ESCITALOPRAM OXALATE (10 MG) 10 MG TABLET PO SCH (09:37)
[2020-09-27] MEDS: HYDROCODONE/APAP 5/325MG TABLET PO PRN (10:04)
[2020-09-27 12:00] VITALS: BP 124/67
--- NOTE | 2020-09-27 14:00 | NUR ---
RN NOTES PT HAS NO S/S OF SOB OR RESPIRATORY DISTRESS NOTED. WILL CONTINUE TO MONITOR
[2020-09-27 16:00] VITALS: BP 111/67
[2020-09-27] MEDS: DEXAMETHASONE SOD PHOSPHATE 10 MG/ML VIAL IV SCH (16:29)
[2020-09-27] MEDS: CEFTRIAXONE 1 G in IV D5W 50 ML IV SCH (16:31)
[2020-09-27] MEDS ORDERED: DEXAMETHASONE 4 MG TABLET PO SCH (17:00)
[2020-09-27] MEDS: AZITHROMYCIN 500 MG in IV D5W 250 ML IV SCH (17:18)
--- NOTE | 2020-09-27 19:03 | NUR ---
RN CLOSING NOTE, PATIENT IS IN BED RESTING, BREATHING EVEN AND UNLABORED, NO SOB/ACUTE RESPIRATORY DISTRESS, CONTINUE SR AND BBB WITH HR IN 70-80S , PLACED ON 5LPM VIA NC NOW WITH OPTIMAL O2 SAT LEVEL. FLONASE NS SPRAY USING. ALL NEEDS MET. .SAFETY MEASURES ARE IMPLEMENTED PER HOSPITAL POLICY, BED IS IN THE LOCKED AND IN THE LOWEST POSITION. SIDE RAILS ARE UPX2. CALL LIGHT WITHIN REACH, WILL ENDORSE TO PM NURSE FOR CONTINUE TO CARE
--- NOTE | 2020-09-27 19:52 | NUR ---
DIGITAL COORDINATOR NOTES PATIENT IN BED, AWAKE, ALERT AND ORIENTED X 3. BREATHING EVEN AND UNLABORED ON 5L NC. SHOWS NO SIGNS OF ACUTE RESPIRATORY DISTRESS, NO ACUTE PAIN. TELE MONITOR ON SR WITH BBB. IV ON LAC 20G ITS CLEAN DRY AND INTACT. SHOWS NO SIGNS OF INFILTRATION, NO REDNESS. SAFETY PRECAUTIONS IN PLACE. BED IN LOWEST POSITION, LOCKED, AND CALL LIGHT KEPT WITHIN REACH. WILL CONTINUE TO MONITOR.
[2020-09-27 20:00] VITALS: BP 108/56
[2020-09-28] VITALS: BP 118/66
[2020-09-28 04:00] VITALS: BP 119/69
[2020-09-28] MEDS: FLUTICASONE PROPIONATE 16 GM BOTTLE NS SCH ×3 (05:57→18:52)
--- NOTE | 2020-09-28 06:57 | NUR ---
METAL FABRICATOR WELDER NOTES PATIENT IN BED, AWAKE, ALERT AND ORIENTED X 3. BREATHING EVEN AND UNLABORED ON 5L NC. SHOWS NO SIGNS OF ACUTE RESPIRATORY DISTRESS, NO ACUTE PAIN. TELE MONITOR ON SR WITH BBB. IV ON L HAND 20G ITS CLEAN DRY AND INTACT. SHOWS NO SIGNS OF INFILTRATION, NO REDNESS. ALL DUE MEDICATIONS GIVEN. ALL NEEDS ATTENDED TO. SAFETY PRECAUTIONS IN PLACE. BED IN LOWEST POSITION, LOCKED, AND CALL LIGHT KEPT WITHIN REACH. WILL ENDORSE TO ONCOMING NURSE.
--- NOTE | 2020-09-28 07:10 | NUR ---
PATIENT IN BED, AWAKE, ALERT AND ORIENTED X 3. BREATHING EVEN AND UNLABORED ON 5L NC. SHOWS NO SIGNS OF ACUTE RESPIRATORY DISTRESS, NO ACUTE PAIN. TELE MONITOR ON SR WITH BBB. IV ON L HAND 20G ITS CLEAN DRY, FLUSHED, AND INTACT. SHOWS NO SIGNS OF INFILTRATION, NO REDNESS. NO PT COMPLAINTS. WILL MONITOR RESPIRATION, O2, RESPONSE TO TREATMENT AND REPORT TO MD NEEDED. WILL IMPLEMENT ORDERS. RAILS X2 UP, BED LOCKED, LOW, CALL LIGHT IN REACH. ALL HOSPITAL POLICY SAFETY PRECAUTIONS IMPLEMENTED.
[2020-09-28 07:18] LABS: BASOPHILS % (AUTO) 0.4 % (0.0-2.0); EOSINOPHILS % (AUTO) 0.2 % (0.0-6.0); HEMATOCRIT 37 % (33-45); LYMPHOCYTES # (AUTO) 0.3 /CMM (0.8-4.8); LYMPHOCYTES % (AUTO) 19.1 % (20.0-44.0); MEAN CORPUSCULAR HGB CONC 33 g/dl (31.0-36.0); MEAN CORPUSCULAR VOLUME 85 fL (82-100); MONOCYTES # (AUTO) 0.1 /CMM (0.1-1.30); NEUTROPHILS % (AUTO) 70.3 % (43.0-81.0); PLATELET COUNT (AUTO) 88 /CMM (150-450); RED BLOOD CELL COUNT(AUTO) 4.27 MIL/uL (4.0-5.2)
[2020-09-28 07:58] LABS: CALCIUM, SERUM 8.5 mg/dL (8.5-10.1); CREATININE 0.7 mg/dL (0.6-1.3); POTASSIUM 4.6 mmol/L (3.5-5.1)
[2020-09-28 08:00] VITALS: BP 117/59
[2020-09-28 08:01] LABS: WHITE BLOOD COUNT (AUTO) 1.4 K/uL (4.3-11.0)
--- NOTE | 2020-09-28 08:01 | NUR ---
CRITICAL LAB VALUE 1.4 WBC RECEIVED FROM LAB. NOTIFIED. AWAITING ORDERS.
[2020-09-28] MEDS: FUROSEMIDE 20 MG TABLET PO SCH (09:54)
[2020-09-28] MEDS: DEXAMETHASONE SOD PHOSPHATE 10 MG/ML VIAL IV SCH (09:54)
[2020-09-28] MEDS: PANTOPRAZOLE 40 MG TABLET.DR PO SCH (09:54)
[2020-09-28] MEDS: BENAZEPRIL HCL 20 MG TABLET PO SCH (09:54)
[2020-09-28] MEDS: AMLODIPINE BESYLATE 5 MG TABLET PO SCH (09:54)
[2020-09-28] MEDS: METOPROLOL SUCCINATE 50 MG TAB.SR.24H PO SCH (09:55)
[2020-09-28] MEDS: MEMANTINE HCL 5 MG TABLET PO SCH ×2 (09:55→17:03)
[2020-09-28] MEDS: FLUTICASONE/VILANTEROL 1 EACH BLST.W.DEV IH SCH (09:55)
[2020-09-28] MEDS: ESCITALOPRAM OXALATE (10 MG) 10 MG TABLET PO SCH (09:55)
[2020-09-28] MEDS: ATORVASTATIN 40 MG TABLET PO SCH (09:55)
[2020-09-28] MEDS: ASPIRIN EC 81 MG TABLET.DR PO SCH (09:55)
[2020-09-28 10:08] LABS: LYMPHOCYTES % (MANUAL) 21 % (16-48); MONOCYTES % (MANUAL) 6 % (0-11.0); NEUTROPHILS % (MANUAL) 73 (42-76)
[2020-09-28 12:00] VITALS: BP 124/69
[2020-09-28 16:00] VITALS: BP 135/70
[2020-09-28] MEDS: CEFTRIAXONE 1 G in IV D5W 50 ML IV SCH (17:02)
--- NOTE | 2020-09-28 18:26 | NUR ---
ASSISTANT NURSE MANAGER NOTIFIED OF TWO FAILED PIV ATTEMPTS. ASSISTANT NURSE MANAGER ORDERED MIDLINE INSERTION. NURSING MARINE FIREMAN MADE AWARE.
--- NOTE | 2020-09-28 19:10 | NUR ---
RN OPENING NOTES: RECEIVED PT A/OX 3-4 SLEEPING IN BED COMFORTABLY. PATIENT IN NO S/SX OF ACUTE DISTRESS AT THIS TIME. NO SOB NOTED. PATIENT'S BREATHING IS EVEN AND UNLABORED. PATIENT IS ON 5L OF OXYGEN VIA NC; TOLERATING WELL. PATIENT ON TELE MONITORING READING SINUS RHYTHM HR IS @60s AT THE TIME OF RECEIVED. NOTED IV SITE ON L HAND #20; PATENT, INTACT AND FLUSHING WELL; NO S/S OF INFECTION OR INFILTRATION. PT AMBULATORY. PT ON CARDIAC DIET.SAFETY MEASURES HAVE BEEN PROVIDED AND IMPLEMENTED. PATIENT BED ALARM IS ON. HEAD OF BED ELEVATED. BED IS LOCKED, IN LOWEST POSITION AND SIDE RAILS UP. CALL LIGHT WITHIN REACH OF THE PATIENT. APPLICABLE ISOLATION PRECAUTIONS IN PLACE. WILL CONTINUE TO MONITOR AND REASSESS FOR ANY CHANGES AND WILL CARRY OUT ANY ONGOING AND ACTIVE MD ORDER.
[2020-09-28] MEDS: AZITHROMYCIN 500 MG in IV D5W 250 ML IV SCH (19:23)
--- NOTE | 2020-09-28 19:55 | NUR ---
PATIENT IN BED, AWAKE, ALERT AND ORIENTED X 3. BREATHING EVEN AND UNLABORED ON 5L NC. SHOWS NO SIGNS OF ACUTE RESPIRATORY DISTRESS, NO ACUTE PAIN. TELE MONITOR ON SR WITH BBB. AWAITING MIDLINE INSERTION ORDERED. ALL SUPPLIES IN ROOM. NURSING NEWS TECHNICAL DIRECTOR AND OPERATION MANAGER AWARE. NO PT COMPLAINTS. MONITORED RESPIRATION, O2, RESPONSE TO TREATMENT AND REPORTED TO MD/OPERATION MANAGER NEEDED. IMPLEMENTED ORDERS. RAILS X2 UP, BED LOCKED, LOW, CALL LIGHT IN REACH. ALL HOSPITAL POLICY SAFETY PRECAUTIONS IMPLEMENTED. ALL ORDERS IMPLEMENTED. ENDORSED TO PM RN.
[2020-09-28 20:00] VITALS: BP 123/67
--- NOTE | 2020-09-28 20:55 | NUR ---
RN NOTES NOTED IV LINE/ACCESS ON L HAND TO BE DISLODGED AND NON-PATENT. FACILITATED CHANGE AND REINSERTION OF IV LINE @ L FA #22. MOTOR COACH CHAUFFEUR MADE AWARE. WILL CONTINUE TO MONITOR AND ASSESS
--- NOTE | 2020-09-28 22:00 | NUR ---
RN NOTES PATIENT REMAINS IN NO ACUTE RESPIRATORY DISTRESS AT THIS TIME, NO CHANGES TO CONDITION/STATUS. CLINICAL LABORATORY MANAGER WELL AWARE. WILL CONTINUE TO MONITOR AND REASSESS FOR ANY CHANGES THROUGHOUT THE SHIFT
--- NOTE | 2020-09-28 22:20 | NUR ---
RN NOTES PICC LINE NURSE (WESLY LOPEZ) WENT TO PATIENT FOR INSERTION OF MILDINE, MIDLINE INSERTED @ R BRACHIAL #18. INTACT AND FLUSHING WELL; NO S/S OF INFECTION OR INFILTRATION. OTOLOGIST MADE AWARE.WILL CONTINUE TO MONITOR AND REASSESS FOR ANY CHANGES THROUGHOUT THE SHIFT.
[2020-09-29] VITALS (10 sets, daily range): BP systolic 105–140; BP diastolic 50–79
[2020-09-29] MEDS: FLUTICASONE PROPIONATE 16 GM BOTTLE NS SCH ×4 (00:31→17:09)
--- NOTE | 2020-09-29 03:00 | NUR ---
RN NOTES NO CHANGE IN PATIENT CONDITION AT THIS TIME PATIENT VITALS STABLE, NO SIGNS OF ACUTE RESPIRATORY DISTRESS. GARDEN EQUIPMENT MECHANIC MADE AWARE. WILL CONTINUE TO MONITOR AND REASSESS FOR ANY CHANGES THROUGHOUT THE SHIFT.
--- NOTE | 2020-09-29 04:00 | NUR ---
RN NOTES EPIC CADENCE SPECIALISTS ADVISED PRIMARY RN THAT PATIENT REFUSED TO HAVE HER VITAL SIGNS TAKEN, PRIMARY RN INTERVENE AND EXPLAINED RISK AND BENEFITS; PT STILL REFUSED. INTEGRATION SOLUTION ARCHITECT MADE AWARE. WILL ENDORSE TO MORNING SHIFT. WILL CONTINUE TO MONITOR AND ASSESS THROUGHOUT THE SHIFT.
--- NOTE | 2020-09-29 06:43 | NUR ---
RN CLOSING NOTE PATIENT REMAINS IN ROOM. NO SIGNS OF RESPIRATORY DISTRESS. SAFETY MEASURES IMPLEMENTED, BED IN LOWEST POSITION, LOCKED, SIDE RAILS UP, CALL LIGHT WITHIN REACH. ALL NEEDS AND ORDERS ADDRESSED DURING THE SHIFT. ALL DUE MEDS GIVEN ORDERED & SCHEDULED ; PATIENT TOLERATED WELL.PATIENT KEPT CLEAN AND COMFORTABLE WITHIN THE SHIFT. ENDORSED TO INCOMING SHIFT RN FOR CONTINUITY OF CARE.
--- NOTE | 2020-09-29 07:30 | NUR ---
RN OPENING NOTE PATIENT REMAINS IN ROOM. NO SIGNS OF RESPIRATORY DISTRESS. PATIENT ALERT AND ORIENTED X4, BELARUSIAN SPEAKING. ABLE TO MAKE NEEDS KNOWN. L FA 22G IV AND A R BRACHIAL MIDLINE 18G IN PLACE, INTACT AND PATENT. NO S/S OF INFECTION AT THIS TIME. CURRENTLY WAITING FOR PLASMA ARRIVAL FOR TRANSFUSION. SAFETY MEASURES IMPLEMENTED, BED IN LOWEST POSITION, LOCKED, SIDE RAILS UP, CALL LIGHT WITHIN REACH. WILL CONTINUE TO MONITOR AND PROVIDE TREATMENT.
--- NOTE | 2020-09-29 07:58 | NUR ---
PLASMA UPDATE CALLED LAB TO GET UPDATE FOR COVID PLASMA, INFORMED THAT THEY ARE STILL WAITING TO RECEIVE PLASMA.
[2020-09-29 08:22] LABS: IMMUNOGLOBULIN A, SERUM 140 mg/dL (64-422); IMMUNOGLOBULIN G, SERUM 791 mg/dL (586-1602); IMMUNOGLOBULIN M, SERUM 47 mg/dL (26-217)
[2020-09-29] MEDS: ESCITALOPRAM OXALATE (10 MG) 10 MG TABLET PO SCH (09:09)
[2020-09-29] MEDS: MEMANTINE HCL 5 MG TABLET PO SCH ×2 (09:09→17:09)
[2020-09-29] MEDS: ASPIRIN EC 81 MG TABLET.DR PO SCH (09:09)
[2020-09-29] MEDS: DEXAMETHASONE SOD PHOSPHATE 10 MG/ML VIAL IV SCH (09:09)
[2020-09-29] MEDS: FUROSEMIDE 20 MG TABLET PO SCH (09:09)
[2020-09-29] MEDS: ATORVASTATIN 40 MG TABLET PO SCH (09:09)
[2020-09-29] MEDS: PANTOPRAZOLE 40 MG TABLET.DR PO SCH (09:09)
[2020-09-29] MEDS: BENAZEPRIL HCL 20 MG TABLET PO SCH (09:10)
[2020-09-29] MEDS: METOPROLOL SUCCINATE 50 MG TAB.SR.24H PO SCH (09:10)
[2020-09-29] MEDS: AMLODIPINE BESYLATE 5 MG TABLET PO SCH (09:10)
[2020-09-29 09:11] LABS: BASOPHILS % (AUTO) 0.3 % (0.0-2.0); HEMATOCRIT 38 % (33-45); HEMOGLOBIN 12.4 g/dL (11.5-14.8); LYMPHOCYTES # (AUTO) 0.4 /CMM (0.8-4.8); LYMPHOCYTES % (AUTO) 9.1 % (20.0-44.0); MEAN CORPUSCULAR HGB CONC 33 g/dl (31.0-36.0); MEAN CORPUSCULAR VOLUME 84 fL (82-100); MONOCYTES # (AUTO) 0.3 /CMM (0.1-1.30); MONOCYTES % (AUTO) 7.8 % (2.0-12.0); NEUTROPHILS # (AUTO) 3.5 /CMM (1.8-8.9); NEUTROPHILS % (AUTO) 82.8 % (43.0-81.0); PLATELET COUNT (AUTO) 119 /CMM (150-450); RED BLOOD CELL COUNT(AUTO) 4.48 MIL/uL (4.0-5.2); WHITE BLOOD COUNT (AUTO) 4.3 K/uL (4.3-11.0)
[2020-09-29] MEDS: FLUTICASONE/VILANTEROL 1 EACH BLST.W.DEV IH SCH (09:11)
[2020-09-29 09:54] LABS: CALCIUM, SERUM 8.9 mg/dL (8.5-10.1); CREATININE 0.8 mg/dL (0.6-1.3); POTASSIUM 4.3 mmol/L (3.5-5.1)
[2020-09-29] MEDS: HYDROCODONE/APAP 5/325MG TABLET PO PRN (10:16)
[2020-09-29] MEDS: ENOXAPARIN SODIUM 40 MG/0.4 ML DISP.SYRIN SQ SCH (11:58)
--- NOTE | 2020-09-29 12:50 | NUR ---
PLASMA TRANSFUSION PLASMA RECEIVED FROM LAB BBK, STARTED PLASMA. VS TAKEN. NO S/S OF DISTRESS UPON STARTING TRANSFUSION. WILL CONTINUE TO MONITOR.
--- NOTE | 2020-09-29 13:05 | NUR ---
PLASMA TRANSFUSION - 15 MIN VS TAKEN, WNL. PATIENT DENIES ANY PAIN OR DISCOMFORT AT THIS TIME. NO S/S OF TRANSFUSION REACTION AT THIS TIME. WILL CONTINUE TO MONITOR THE PATIENT.
--- NOTE | 2020-09-29 14:50 | NUR ---
PLASMA TRANSFUSION - 90 MIN VS TAKEN, WNL. PATIENT DENIES ANY PAIN OR DISCOMFORT. NO S/S OF DISTRESS OR TRANSFUSION REACTION AT THIS TIME. WILL CONTINUE TO MONITOR.
--- NOTE | 2020-09-29 15:13 | NUR ---
PLASMA TRANSFUSION - COMPLETE VS TAKEN, WNL. TRANSFUSION COMPLETE. PATIENT DENIES ANY PAIN OR DISCOMFORT. NO S/S OF DISTRESS OR TRANSFUSION REACTION AT THIS TIME. WILL CONTINUE TO MONITOR.
[2020-09-29 16:10] LABS: *ANA ANTI-CENTROMERE B AB <0.2 AI (0.0-0.9); *ANA ANTI-DNA(DS) AB, QN <1 IU/mL (0-9); *ANA ANTI-JO-1 <0.2 AI (0.0-0.9); *ANA ANTICHROMATIN ANTIBODY <0.2 AI (0.0-0.9); *ANA RNP ANTIBODIES <0.2 AI (0.0-0.9); *ANA SJOGREN'S ANTI-SS-A <0.2 AI (0.0-0.9); *ANA SJOGREN'S ANTI-SS-B <0.2 AI (0.0-0.9); *ANAANTI-SCLERODERMA-70 AB <0.2 AI (0.0-0.9); *ANASMITH AB <0.2 AI (0.0-0.9)
[2020-09-29] MEDS: CEFTRIAXONE 1 G in IV D5W 50 ML IV SCH (17:09)
[2020-09-29] MEDS ORDERED: AZITHROMYCIN 250 MG TABLET PO SCH (18:00)
--- NOTE | 2020-09-29 18:46 | NUR ---
RN CLOSING NOTE PATIENT REMAINS IN ROOM. NO SIGNS OF RESPIRATORY DISTRESS. PATIENT ALERT AND ORIENTED X4, MONTENEGRIN SPEAKING. ABLE TO MAKE NEEDS KNOWN. L FA 22G IV AND A R BRACHIAL MIDLINE 18G IN PLACE, INTACT AND PATENT. NO S/S OF INFECTION AT THIS TIME. PATIENT RECEIVED ONE UNIT OF PLASMA DURING SHIFT. NO TRANSFUSION REACTION AT THIS TIME. SAFETY MEASURES IMPLEMENTED, BED IN LOWEST POSITION, LOCKED, SIDE RAILS UP, CALL LIGHT WITHIN REACH. WILL ENDORSE TO CHAIR FINISHER RN FOR CUAUHTEMOC.
--- NOTE | 2020-09-29 19:20 | NUR ---
RN NOTE PT IN BED AWAKE AND ALERT/ORIENTED X 3. ON ROOM AIR, RESPIRATIONS EVEN AND UNLABORED, DENIES PAIN OR DISCOMFORT, SR ON THE TELE MONITOR. IV LINE AND MIDLINE BOTH FLUSHED AND PATENT WITHOUT COMPLICATIONS NOTED AT SITES, PT RECEIVED 1 UNIT OF PLASMA DURING AM SHIFT, NO REACTIONS NOTED AT THIS TIME, CALL LIGHT WITHIN REACH, SAFETY MEASURES IN PLACE PER PROTOCOL, BED LOCKED AND IN LOW POSITION, SIDE RAILS UP X 2, WILL MONITOR.
[2020-09-30] VITALS: BP 129/77
[2020-09-30] MEDS: FLUTICASONE PROPIONATE 16 GM BOTTLE NS SCH ×5 (00:11→23:22)
--- NOTE | 2020-09-30 02:00 | NUR ---
RN NOTE PT SLEEPING IN BED COMFORTABLY WITHOUT SIGNS OF PAIN, DISCOMFORT, OR DISTRESS.
[2020-09-30 04:00] VITALS: BP 132/76
--- NOTE | 2020-09-30 05:03 | NUR ---
RN NOTE RN AND CONSULTING NETWORKING ENGINEER OFFERED PT BATH AND COMPLETE LINEN CHANGE. PT REFUSED BUT ALLOWED FOR GOWN CHANGE. NO FURTHER NEEDS AT THIS TIME.
--- NOTE | 2020-09-30 06:54 | NUR ---
RN NOTE NO ACUTE CHANGES OBSERVED OVERNIGHT. PT SLEEPING IN BED COMFORTABLY. ON ROOM AIR, RESPIRATIONS EVEN AND UNLABORED, NO SIGNS OF PAIN OR DISCOMFORT, SR ON THE TELE MONITOR. IV LINE AND MIDLINE BOTH FLUSHED AND PATENT WITHOUT COMPLICATIONS NOTED AT SITES, CALL LIGHT WITHIN REACH, SAFETY MEASURES IN PLACE PER PROTOCOL, BED LOCKED AND IN LOW POSITION, SIDE RAILS UP X 2, WILL ENDORSE TO MORNING RN FOR [place].
[2020-09-30 07:07] LABS: BASOPHILS % (AUTO) 0.1 % (0.0-2.0); HEMATOCRIT 35 % (33-45); HEMOGLOBIN 11.5 g/dL (11.5-14.8); LYMPHOCYTES # (AUTO) 0.4 /CMM (0.8-4.8); LYMPHOCYTES % (AUTO) 8.9 % (20.0-44.0); MEAN CORPUSCULAR HGB CONC 33 g/dl (31.0-36.0); MEAN CORPUSCULAR VOLUME 84 fL (82-100); MONOCYTES # (AUTO) 0.4 /CMM (0.1-1.30); MONOCYTES % (AUTO) 8.4 % (2.0-12.0); NEUTROPHILS # (AUTO) 3.6 /CMM (1.8-8.9); NEUTROPHILS % (AUTO) 82.6 % (43.0-81.0); PLATELET COUNT (AUTO) 136 /CMM (150-450); RED BLOOD CELL COUNT(AUTO) 4.12 MIL/uL (4.0-5.2); WHITE BLOOD COUNT (AUTO) 4.4 K/uL (4.3-11.0)
--- NOTE | 2020-09-30 07:20 | NUR ---
RN OPENING NOTE RECEIVED PT AWAKE, A/O X4, MACEDONIAN SPEAKING. NO SOB OR ANY SIGNS OF RESPIRATORY DISTRESS NOTED. LFA #22 AND R BRACHIAL MIDLINE #18 BOTH INTACT, PATENT AND FLUSHED. NO PAIN REPORTED AT THIS TIME. SKIN IS INTACT. AMBULATORY WITH BRP. SAFETY MEASURES IMPLEMENTED. BED LOCKED AND AT LOWEST POSITION WITH SIDE RAILS UP X2. CALL LIGHT WITHIN REACH. WILL CONTINUE TO MONITOR.
[2020-09-30 07:27] LABS: CALCIUM, SERUM 8.4 mg/dL (8.5-10.1); CREATININE 0.7 mg/dL (0.6-1.3); POTASSIUM 4.3 mmol/L (3.5-5.1)
[2020-09-30 08:00] VITALS: BP 143/77
[2020-09-30 08:44] LABS: BAND % (MANUAL) 1 % (0.0-5.0); LYMPHOCYTES % (MANUAL) 7 % (16-48); MONOCYTES % (MANUAL) 6 % (0-11.0); NEUTROPHILS % (MANUAL) 86 (42-76)
[2020-09-30] MEDS: BENAZEPRIL HCL 20 MG TABLET PO SCH (08:55)
[2020-09-30] MEDS: ASPIRIN EC 81 MG TABLET.DR PO SCH (08:55)
[2020-09-30] MEDS: MEMANTINE HCL 5 MG TABLET PO SCH ×2 (08:55→17:12)
[2020-09-30] MEDS: ESCITALOPRAM OXALATE (10 MG) 10 MG TABLET PO SCH (08:55)
[2020-09-30] MEDS: DEXAMETHASONE SOD PHOSPHATE 10 MG/ML VIAL IV SCH (08:56)
[2020-09-30] MEDS: METOPROLOL SUCCINATE 50 MG TAB.SR.24H PO SCH (08:56)
[2020-09-30] MEDS: PANTOPRAZOLE 40 MG TABLET.DR PO SCH (08:56)
[2020-09-30] MEDS: AMLODIPINE BESYLATE 5 MG TABLET PO SCH (08:57)
[2020-09-30] MEDS: FUROSEMIDE 20 MG TABLET PO SCH (08:57)
[2020-09-30] MEDS: ATORVASTATIN 40 MG TABLET PO SCH (08:57)
[2020-09-30] MEDS: FLUTICASONE/VILANTEROL 1 EACH BLST.W.DEV IH SCH (08:57)
[2020-09-30] MEDS: ENOXAPARIN SODIUM 40 MG/0.4 ML DISP.SYRIN SQ SCH (08:59)
[2020-09-30 12:00] VITALS: BP 125/62
[2020-09-30 13:30] LABS: BILIRUBIN,TOTAL 0.4 mg/dL (0.2-1.0)
[2020-09-30 13:31] LABS: ALANINE AMINOTRANSFERASE 32 U/L (12-78); ALBUMIN 2.9 g/dL (3.4-5.0); ALKALINE PHOSPHATASE 54 U/L (46-116); ASPARTATE AMINOTRANSFERASE 46 U/L (15-37); BILIRUBIN,DIRECT 0.1 mg/dL (0.0-0.2); TOTAL PROTEIN, SERUM 6.5 g/dL (6.4-8.2)
[2020-09-30 16:00] VITALS: BP 116/60
[2020-09-30] MEDS ORDERED: REMDESIVIR (CHARGED) 200 MG, *LOADING DOSE 1 EA in IV NS 0.9% 210 ML IV ONE (16:00)
[2020-09-30] MEDS: HYDROCODONE/APAP 5/325MG TABLET PO PRN (17:15)
--- NOTE | 2020-09-30 19:19 | NUR ---
RN CLOSING NOTE PT RESTING IN BED, A/O X4, GUAMANIAN SPEAKING. NO SOB OR ANY SIGNS OF RESPIRATORY DISTRESS NOTED. R BRACHIAL MIDLINE #18 INTACT, PATENT AND FLUSHED. NO PAIN REPORTED AT THIS TIME. SKIN IS INTACT. AMBULATORY WITH BRP. SAFETY MEASURES IMPLEMENTED. BED LOCKED AND AT LOWEST POSITION WITH SIDE RAILS UP X2. CALL LIGHT WITHIN REACH. WILL ENDORSE TO NIGHT NURSE FOR CUAUHTEMOC.
--- NOTE | 2020-09-30 19:39 | NUR ---
TOPPER PACKER OPENING NOTES PATIENT RECEIVED RESTING IN BED COMFORTABLY; A/OX3, URDU SPEAKING; BREATHING EVEN AND UNLABORED; TOLERATING 5LPM VIA NC WELL, NO SOB NOTED; PER AM SHIFT, PATIENT AMBULATORY AND ABLE TO TOLERATE ROOM AIR WHILE AMBULATING TO THE BATHROOM; TELE MONITOR READS SINUS RHYTHM 60BPM; TEMI MIDLINE INTACT AND PATENT, PATIENT COMPLAINT OF GENERALIZED WEAKNESS; ISOLATION PRECAUTIONS MAINTAINED; SAFETY PRECAUTIONS IMPLEMENTED; BED LOCKED IN LOW POSITION; SIDE RAILSX2; CALL LIGHT WITHIN REACH; WILL CONT TO MONITOR
[2020-09-30 20:00] VITALS: BP 134/71
[2020-10-01] VITALS: BP 104/74
[2020-10-01 04:00] VITALS: BP 138/63
--- NOTE | 2020-10-01 05:00 | NUR ---
COMMUNITY MENTAL HEALTH SOCIAL WORKER NOTES PARTS INTERPRETER AT BEDSIDE, UNABLE TO COLLECT ENOUGH BLOOD FOR LABS; PATIENT IS HARD STICK; PER PARTS INTERPRETER, MAY TRY AGAIN LATER TODAY IF NEEDED; WILL INFORM DAY SHIFT; WILL CONT TO MONITOR
[2020-10-01] MEDS: FLUTICASONE PROPIONATE 16 GM BOTTLE NS SCH ×3 (05:04→18:23)
[2020-10-01 06:35] LABS: BASOPHILS % (AUTO) 0.1 % (0.0-2.0); HEMATOCRIT 35 % (33-45); HEMOGLOBIN 11.7 g/dL (11.5-14.8); LYMPHOCYTES # (AUTO) 0.4 /CMM (0.8-4.8); LYMPHOCYTES % (AUTO) 9.7 % (20.0-44.0); MEAN CORPUSCULAR HGB CONC 34 g/dl (31.0-36.0); MEAN CORPUSCULAR VOLUME 85 fL (82-100); MONOCYTES # (AUTO) 0.4 /CMM (0.1-1.30); MONOCYTES % (AUTO) 8.1 % (2.0-12.0); NEUTROPHILS # (AUTO) 3.7 /CMM (1.8-8.9); NEUTROPHILS % (AUTO) 82.1 % (43.0-81.0); PLATELET COUNT (AUTO) 114 /CMM (150-450); RED BLOOD CELL COUNT(AUTO) 4.12 MIL/uL (4.0-5.2); WHITE BLOOD COUNT (AUTO) 4.6 K/uL (4.3-11.0)
[2020-10-01 06:38] LABS: ALBUMIN 2.7 g/dL (3.4-5.0); BILIRUBIN,DIRECT 0.1 mg/dL (0.0-0.2); BILIRUBIN,TOTAL 0.4 mg/dL (0.2-1.0); CALCIUM, SERUM 8.4 mg/dL (8.5-10.1); CREATININE 0.7 mg/dL (0.6-1.3); POTASSIUM 3.9 mmol/L (3.5-5.1); TOTAL PROTEIN, SERUM 6.5 g/dL (6.4-8.2)
--- NOTE | 2020-10-01 06:41 | NUR ---
QUARTER SECTION IRONER CLOSING NOTES PATIENT RESTING IN BED COMFORTABLY; A/OX3, [place] SPEAKING;, BREATHING EVEN AND UNLABORED; TOLERATING 5LPM WELL; NO SOB NOTED; NO DISTRESS NOTED; PATIENT DENIES PAIN; PATIENT ABLE TO MAKE NEEDS KNOWN; TELE MONITOR READS SINUS NOE - SINUS RHYTHM WITH PVCS AND BBBS; ISOLATION MAINTAINED; SAFETY PRECAUTIONS IMPLEMENTED; ALL NEEDS RENDERED; WILL ENDORSE CUAUHTEMOC TO ONCOMING SHIFT
--- NOTE | 2020-10-01 07:30 | NUR ---
PT RECEIVED IN BED, ALERT AND ORIENTED X 3 SWAZI SPEAKING. PT ON 5L OW SAT 99%. NO RESPIRATORY DISTRESS OR SOB. PT ON MONITOR SHOWING SINUS NOE/SR WITH BUNDLE BRANCH BLOCK. PT AMBULATORY WITH SBA, SKIN INTACT. PT AON CARDIAC DIET WITH TEMI MIDLINE INTACT AND FLUSHED WELL. NO SIGNS OF INFECTION OR INFILTRATION. BED IN LOCKED LOWEST POSITION, CALL LIGHT WITHIN REACH. ALL SAFETY MEASURES IN PLACE. WILL CONTINUE TO MONITOR CLOSELY
[2020-10-01 08:00] VITALS: BP 126/65
[2020-10-01] MEDS: METOPROLOL SUCCINATE 50 MG TAB.SR.24H PO SCH (08:47)
[2020-10-01] MEDS: FUROSEMIDE 20 MG TABLET PO SCH (08:47)
[2020-10-01] MEDS: ESCITALOPRAM OXALATE (10 MG) 10 MG TABLET PO SCH (08:48)
[2020-10-01] MEDS: PANTOPRAZOLE 40 MG TABLET.DR PO SCH (08:49)
[2020-10-01] MEDS: ATORVASTATIN 40 MG TABLET PO SCH (08:49)
[2020-10-01] MEDS: ASPIRIN EC 81 MG TABLET.DR PO SCH (08:49)
[2020-10-01] MEDS: MEMANTINE HCL 5 MG TABLET PO SCH ×2 (08:49→18:22)
[2020-10-01] MEDS: DEXAMETHASONE SOD PHOSPHATE 10 MG/ML VIAL IV SCH (08:50)
[2020-10-01] MEDS: BENAZEPRIL HCL 20 MG TABLET PO SCH (08:50)
[2020-10-01] MEDS: AMLODIPINE BESYLATE 5 MG TABLET PO SCH (08:51)
[2020-10-01] MEDS: ENOXAPARIN SODIUM 40 MG/0.4 ML DISP.SYRIN SQ SCH (08:55)
[2020-10-01] MEDS: ACETAMINOPHEN 325 MG TABLET PO PRN ×2 (09:08→20:48)
[2020-10-01 12:00] VITALS: BP 121/69
[2020-10-01] MEDS: FLUTICASONE/VILANTEROL 1 EACH BLST.W.DEV IH SCH (12:57)
[2020-10-01 16:00] VITALS: BP 113/60
[2020-10-01] MEDS: REMDESIVIR (CHARGED) 100 MG in IV NS 0.9% 230 ML IV SCH (16:49)
--- NOTE | 2020-10-01 19:40 | NUR ---
PT REMAINS IN BED ON 5L NC. O2 SATURATION 91-95% NO RESPIRATORY DISTRESS OR SOB. ATTEMPTED TO TITRATE O2 TO 4L TODAY HOWEVER O2 SAT REMAINED 88-90%. PT AOX3 KYRGYZ SPEAKING. PT MIDLINE IV REMAINS INTACT AND FLUSHED WELL NO SIGNS OF INFECTION OR INFILTRATION. BED IN LOCKED LOWEST POSITION, CALL LIGHT WITHIN REACH, ALL SAFETY MEASURES IN PLACE. REPORT GIVEN TO LORAINE FOR CUAUHTEMOC
[2020-10-01 20:00] VITALS: BP 133/64
--- NOTE | 2020-10-01 20:00 | NUR ---
television script writer opening note received pt in bed. a/o x3. Breathing even and unlabored in 6lpm via nc. No sob or acute distress noted.Denies any pain or discomfort. TEMI midline patent and intact. IV fluids infusing well. All needs rendered. Bed in lowest position. Srx2 up. Call light within reach. Will continue to monitor.
[2020-10-02] VITALS: BP 134/55
[2020-10-02] MEDS: FLUTICASONE PROPIONATE 16 GM BOTTLE NS SCH ×4 (00:17→18:05)
[2020-10-02 06:00] VITALS: BP 133/78
[2020-10-02 06:17] LABS: BASOPHILS % (AUTO) 0.1 % (0.0-2.0); HEMATOCRIT 37 % (33-45); LYMPHOCYTES # (AUTO) 0.7 /CMM (0.8-4.8); LYMPHOCYTES % (AUTO) 10.7 % (20.0-44.0); MEAN CORPUSCULAR HGB CONC 33 g/dl (31.0-36.0); MEAN CORPUSCULAR VOLUME 85 fL (82-100); MONOCYTES # (AUTO) 0.7 /CMM (0.1-1.30); MONOCYTES % (AUTO) 11.4 % (2.0-12.0); NEUTROPHILS # (AUTO) 4.8 /CMM (1.8-8.9); NEUTROPHILS % (AUTO) 77.8 % (43.0-81.0); PLATELET COUNT (AUTO) 129 /CMM (150-450); RED BLOOD CELL COUNT(AUTO) 4.34 MIL/uL (4.0-5.2); WHITE BLOOD COUNT (AUTO) 6.2 K/uL (4.3-11.0)
--- NOTE | 2020-10-02 06:33 | NUR ---
Wardrobe Attendant note Pt in bed, sleeping but easily arousable. Breathing even and unlabored in 6lpm via nc. Sinus jackeline HR 54 on monitor. No sob or acute distress noted. TEMI midline patent and intact. All needs rendered. Bed in lowest position. Call light within reach. Will endorse to am nurse for continuity of care.
[2020-10-02 06:45] LABS: ALANINE AMINOTRANSFERASE 39 U/L (12-78); ALBUMIN 2.6 g/dL (3.4-5.0); ALKALINE PHOSPHATASE 47 U/L (46-116); ASPARTATE AMINOTRANSFERASE 38 U/L (15-37); BILIRUBIN,DIRECT 0.1 mg/dL (0.0-0.2); BILIRUBIN,TOTAL 0.3 mg/dL (0.2-1.0); CALCIUM, SERUM 8.6 mg/dL (8.5-10.1); CARBON DIOXIDE 27 mmol/L (21-32); CHLORIDE 102 mmol/L (98-107); CREATININE 0.7 mg/dL (0.6-1.3); GLUCOSE 125 mg/dL (74-106); POTASSIUM 3.7 mmol/L (3.5-5.1); SODIUM SERUM 138 mmol/L (136-145); TOTAL PROTEIN, SERUM 6.3 g/dL (6.4-8.2); UREA NITROGEN, BLOOD 20 mg/dL (7-18)
[2020-10-02 07:07] LABS: *SPE A/G RATIO 0.9 (0.7-1.7); *SPE ALBUMIN 2.8 g/dL (2.9-4.4); *SPE ALPHA-1-GLOBULIN 0.3 g/dL (0.0-0.4); *SPE GLOBULIN, TOTAL 3.1 g/dL (2.2-3.9); *SPE M-SPIKE Not Observed g/dL (Not Observed); *SPEGAMMA GLOBULIN 0.8 g/dL (0.4-1.8)
--- NOTE | 2020-10-02 07:59 | NUR ---
MATERIAL LISTER OPENING NOTES Bedside endorsement done. Pt is in bed, awake a/o x4, mongolian-speaking but able to understand some Icelandic. Breathing even and unlabored on O2 at 6L/min via nc. On tele monitoring w/ reading of controlled a-fib, w/ pacemaker, hr in the 60's, no cardiac distress noted. TEMI midline intact and patent. Safety precs in place: bed locked and on lowest position, sr up x2, call light within reach. Will continue to monitor.
[2020-10-02 08:00] VITALS: BP 139/75
[2020-10-02] MEDS: FLUTICASONE/VILANTEROL 1 EACH BLST.W.DEV IH SCH (09:00)
[2020-10-02] MEDS: ESCITALOPRAM OXALATE (10 MG) 10 MG TABLET PO SCH (09:14)
[2020-10-02] MEDS: ATORVASTATIN 40 MG TABLET PO SCH (09:18)
[2020-10-02] MEDS: METOPROLOL SUCCINATE 50 MG TAB.SR.24H PO SCH (09:18)
[2020-10-02] MEDS: DEXAMETHASONE SOD PHOSPHATE 10 MG/ML VIAL IV SCH (09:19)
[2020-10-02] MEDS: AMLODIPINE BESYLATE 5 MG TABLET PO SCH (09:19)
[2020-10-02] MEDS: PANTOPRAZOLE 40 MG TABLET.DR PO SCH (09:19)
[2020-10-02] MEDS: BENAZEPRIL HCL 20 MG TABLET PO SCH (09:19)
[2020-10-02] MEDS: FUROSEMIDE 20 MG TABLET PO SCH (09:19)
[2020-10-02] MEDS: ASPIRIN EC 81 MG TABLET.DR PO SCH (09:19)
[2020-10-02] MEDS: HYDROCODONE/APAP 5/325MG TABLET PO PRN (09:20)
[2020-10-02] MEDS: MEMANTINE HCL 5 MG TABLET PO SCH ×2 (09:20→16:21)
[2020-10-02] MEDS: ENOXAPARIN SODIUM 40 MG/0.4 ML DISP.SYRIN SQ SCH (09:22)
[2020-10-02 12:00] VITALS: BP 134/65
--- NOTE | 2020-10-02 12:48 | NUR ---
RN NOTES PATIENT SEEN EATING LUNCH AND DRINKING MILK; O2 DECREASED TO 5LPM AT THIS TIME, O2 SAT BETWEEN 94-95%, NO RESPIRATORY DISTRESS.
[2020-10-02 16:00] VITALS: BP 139/70
[2020-10-02] MEDS: REMDESIVIR (CHARGED) 100 MG in IV NS 0.9% 230 ML IV SCH (16:21)
--- NOTE | 2020-10-02 18:55 | NUR ---
MARKET RESEARCH ASSOCIATE CLOSING NOTES Pt is in bed, awake a/o x4, verbally responsive, understands some Lao. Breathing even and unlabored, O2 titrated down to 5L/min via nc, tolerated well without distress. On tele monitoring w/ reading of sb, hr at 55-60's, no cardiac distress noted. TEMI midline intact and patent. All due meds given. Kept clean and comfortable. Safety precs maintained: bed locked and on lowest position, sr up x2, call light within reach. Endorsed to shift stacker RN for blanco.
--- NOTE | 2020-10-02 19:30 | NUR ---
SUPPLY COORDINATOR OPENING NOTE RECEIVED PATIENT IN COVIS ISOLATION. PATIENT IN BED. A/OX 4. MOHAWK SPEAKING, ABLE TO MAKE BASIC NEEDS KNOWN. ON OXYGEN 5L/MIN VIA NASAL CANNULA. RESPIRATIONS ARE EVEN AND UNLABORED. NO S.S SOB NOTED. NO S/S OR C/O PAIN AT THIS TIME. EXTERNAL TELE MONITOR READS SINUS RHYTHM HR 60. IN NO APPARENT DISTRESS. IV ACCESS IN TEMI MIDLINE PATENT AND SALINE LOCKED, BED IS LOW AND LOCKED, HOB ELEVATED IN SEMI FOWLERS, SIDE RIALS UP X3, CALL LIGHT WITHIN REACH. WILL CONTINUE TO MONITOR.
[2020-10-02 20:00] VITALS: BP 141/71
[2020-10-03] VITALS: BP 146/90
[2020-10-03] MEDS: FLUTICASONE PROPIONATE 16 GM BOTTLE NS SCH ×4 (00:14→17:21)
--- NOTE | 2020-10-03 00:57 | NUR ---
teleservices representative note informed jack hutchinson NP change in patient condition. patient was on 4l/min via nasal cannula sat 94% beginning of shift and is now on 15l non rebreather sat 97%. will continue to monitor.
[2020-10-03 04:00] VITALS: BP 145/95
[2020-10-03 06:24] LABS: HEMATOCRIT 32 % (33-45); HEMOGLOBIN 10.9 g/dL (11.5-14.8); LYMPHOCYTES # (AUTO) 0.3 /CMM (0.8-4.8); LYMPHOCYTES % (AUTO) 9.6 % (20.0-44.0); MEAN CORPUSCULAR HGB CONC 34 g/dl (31.0-36.0); MEAN CORPUSCULAR VOLUME 83 fL (82-100); MONOCYTES # (AUTO) 0.3 /CMM (0.1-1.30); MONOCYTES % (AUTO) 9.9 % (2.0-12.0); NEUTROPHILS # (AUTO) 2.8 /CMM (1.8-8.9); NEUTROPHILS % (AUTO) 80.5 % (43.0-81.0); PLATELET COUNT (AUTO) 140 /CMM (150-450); WHITE BLOOD COUNT (AUTO) 3.5 K/uL (4.3-11.0)
--- NOTE | 2020-10-03 06:33 | NUR ---
PRECISION OPTICS TECHNICIAN CLOSING NOTE COVID ISOLATION. RESTING IN BED. A/OX 4. ON OXYGEN 10L/MIN VIA NON REBREATHER. SOB NOTED WHEN AMBULATED TO BATHROOM WITHOUT O2. CURRENTLY TITRATING DOWN NONREBREATHER. EXTERNAL TELE MONITOR READS SINUS RHYTHM / SINUS NOE. NO DISTRESS. IV ACCESS MAINTAINED IN TEMI MIDLINE. BED REMAINS LOW AND LOCKED, HOB ELEVATED IN SEMI FOWLERS, SIDE RIALS UP X3, CALL LIGHT WITHIN REACH. WILL ENDORSE TO NEXT SHIFT.
[2020-10-03 06:46] LABS: ALBUMIN 2.4 g/dL (3.4-5.0); BILIRUBIN,DIRECT 0.2 mg/dL (0.0-0.2); BILIRUBIN,TOTAL 0.3 mg/dL (0.2-1.0); CALCIUM, SERUM 8.4 mg/dL (8.5-10.1); CREATININE 0.7 mg/dL (0.6-1.3); POTASSIUM 3.3 mmol/L (3.5-5.1); TOTAL PROTEIN, SERUM 5.7 g/dL (6.4-8.2)
--- NOTE | 2020-10-03 07:00 | NUR ---
RN OPENING NOTE RECEIVED PT AWAKE, A/O X4, FILIPINO SPEAKING. ON 10L O2 VIA NON REBREATHER MASK. NO SOB OR ANY SIGNS OF RESPIRATORY DISTRESS NOTED. TEMI MIDLINE #18 INTACT, PATENT AND FLUSHED. NO PAIN REPORTED AT THIS TIME. SKIN IS INTACT. AMBULATORY WITH BRP. SAFETY MEASURES IMPLEMENTED. BED LOCKED AND AT LOWEST POSITION WITH SIDE RAILS UP X2. CALL LIGHT WITHIN REACH. WILL CONTINUE TO MONITOR.
[2020-10-03 08:00] VITALS: BP 150/74
[2020-10-03] MEDS: MEMANTINE HCL 5 MG TABLET PO SCH ×2 (09:00→17:20)
[2020-10-03] MEDS: ASPIRIN EC 81 MG TABLET.DR PO SCH (09:00)
[2020-10-03] MEDS: ATORVASTATIN 40 MG TABLET PO SCH (09:00)
[2020-10-03] MEDS: AMLODIPINE BESYLATE 5 MG TABLET PO SCH (09:01)
[2020-10-03] MEDS: BENAZEPRIL HCL 20 MG TABLET PO SCH (09:01)
[2020-10-03] MEDS: FUROSEMIDE 20 MG TABLET PO SCH (09:01)
[2020-10-03] MEDS: ESCITALOPRAM OXALATE (10 MG) 10 MG TABLET PO SCH (09:01)
[2020-10-03] MEDS: PANTOPRAZOLE 40 MG TABLET.DR PO SCH (09:01)
[2020-10-03] MEDS: METOPROLOL SUCCINATE 50 MG TAB.SR.24H PO SCH (09:01)
[2020-10-03] MEDS: DEXAMETHASONE SOD PHOSPHATE 10 MG/ML VIAL IV SCH (09:02)
[2020-10-03] MEDS: ENOXAPARIN SODIUM 40 MG/0.4 ML DISP.SYRIN SQ SCH (09:03)
[2020-10-03] MEDS: FLUTICASONE/VILANTEROL 1 EACH BLST.W.DEV IH SCH (09:04)
[2020-10-03] MEDS ORDERED: POTASSIUM CHLORIDE 20 MEQ TAB.PRT.SR PO ONE (11:00)
[2020-10-03 12:00] VITALS: BP 137/66
[2020-10-03 14:44] LABS: C-REACTIVE PROTEIN 4.3 mg/dL (0.0-0.9)
[2020-10-03 16:00] VITALS: BP 114/68
[2020-10-03] MEDS: REMDESIVIR (CHARGED) 100 MG in IV NS 0.9% 230 ML IV SCH (17:00)
--- NOTE | 2020-10-03 19:40 | NUR ---
PORTFOLIO ADMINISTRATOR OPENING NOTES RECEIVED PATIENT IN BED, ALERT AND ORIENTED X 4 NIUEAN SPEAKING. VERBALLY RESPONSIVE AND ABLE TO FOLLOW DIRECTIONS. BREATHING REGULAR AND UNLABORED ON OXYGEN AT 10L/MIN VIA NON-REBREATHER MASK, LATEST SPO2 96%. RIGHT UPPER ARM MIDLINE INTACT AND PATENT, FLUSHING WELL WITH NO BLEEDING OR S/S OF INFILTRATION NOTED. ON CARDIAC MONITORING WITH NSR AT 64bpm. DENIES PAIN/DISCOMFORT AT THIS TIME. BED LOW AND LOCKED ON HIGH FOWLERS POSITION. MAINTAINED ON CONTACT/DROPLET ISOLATION FOR COVID19, PROPER HAND WASHING AND ISOLATION PRECAUTIONS OBSERVED. CALL LIGHT IN REACH. WILL CONTINUE TO MONITOR
--- NOTE | 2020-10-03 19:45 | NUR ---
RN CLOSING NOTE PT RESTING IN BED, A/O X4, LAO SPEAKING. NO SOB OR ANY SIGNS OF RESPIRATORY DISTRESS NOTED. TEMI MIDLINE #18 INTACT, PATENT AND FLUSHED. NO PAIN REPORTED AT THIS TIME. SKIN IS INTACT. AMBULATORY WITH BRP. SAFETY MEASURES IMPLEMENTED. BED LOCKED AND AT LOWEST POSITION WITH SIDE RAILS UP X2. CALL LIGHT WITHIN REACH. WILL ENDORSE TO NIGHT NURSE FOR CUAUHTEMOC.
[2020-10-03 20:00] VITALS: BP 144/77
[2020-10-04] VITALS: BP 144/72
[2020-10-04] MEDS: FLUTICASONE PROPIONATE 16 GM BOTTLE NS SCH ×4 (00:26→17:12)
[2020-10-04 04:00] VITALS: BP 136/84
--- NOTE | 2020-10-04 06:50 | NUR ---
HUMAN RESOURCES HR REPRESENTATIVE CLOSING NOTES PATIENT IN BED, ALERT AND ORIENTED X 4 MONTENEGRIN SPEAKING. AFEBRILE WITH NO S/S OF DISTRESS OBSERVED. RIGHT UPPER ARM MIDLINE PATENT AND FLUSHING WELL. MAINTAINED ON CARDIAC MONITORING WITH NSR AT 70bpm. NO COMPLAINTS OF PAIN/DISCOMFORT REPORTED AT THIS TIME. BED LOW AND LOCKED ON SEMI FOWLERS POSITION. CALL LIGHT IN REACH. WILL ENDORSE TO MORNING SHIFT FOR CUAUHTEMOC.
--- NOTE | 2020-10-04 07:00 | NUR ---
RN OPENING NOTE RECEIVED PT AWAKE, A/O X4, SOUTH AFRICAN SPEAKING. ON 10L O2 VIA NON REBREATHER MASK, SATURATING @96%. NO SOB OR ANY SIGNS OF RESPIRATORY DISTRESS NOTED. TEMI MIDLINE #18 INTACT, PATENT AND FLUSHED. NO PAIN REPORTED AT THIS TIME. SKIN IS INTACT. AMBULATORY WITH BRP. SAFETY MEASURES IMPLEMENTED. BED LOCKED AND AT LOWEST POSITION WITH SIDE RAILS UP X2. CALL LIGHT WITHIN REACH. WILL CONTINUE TO MONITOR.
[2020-10-04 07:08] LABS: BASOPHILS % (AUTO) 0.1 % (0.0-2.0); EOSINOPHILS % (AUTO) 0.1 % (0.0-6.0); HEMATOCRIT 33 % (33-45); HEMOGLOBIN 11.3 g/dL (11.5-14.8); LYMPHOCYTES # (AUTO) 0.5 /CMM (0.8-4.8); LYMPHOCYTES % (AUTO) 11.3 % (20.0-44.0); MEAN CORPUSCULAR HGB CONC 34 g/dl (31.0-36.0); MEAN CORPUSCULAR VOLUME 83 fL (82-100); MONOCYTES # (AUTO) 0.4 /CMM (0.1-1.30); MONOCYTES % (AUTO) 10.1 % (2.0-12.0); NEUTROPHILS # (AUTO) 3.1 /CMM (1.8-8.9); NEUTROPHILS % (AUTO) 78.4 % (43.0-81.0); PLATELET COUNT (AUTO) 160 /CMM (150-450); RED BLOOD CELL COUNT(AUTO) 4.03 MIL/uL (4.0-5.2)
[2020-10-04 07:31] LABS: ALBUMIN 2.3 g/dL (3.4-5.0); BILIRUBIN,DIRECT 0.2 mg/dL (0.0-0.2); BILIRUBIN,TOTAL 0.4 mg/dL (0.2-1.0); CALCIUM, SERUM 8.1 mg/dL (8.5-10.1); CREATININE 0.6 mg/dL (0.6-1.3); MAGNESIUM 1.9 mg/dL (1.8-2.4); PHOSPHORUS 3.4 mg/dL (2.5-4.9); POTASSIUM 3.4 mmol/L (3.5-5.1); TOTAL PROTEIN, SERUM 5.7 g/dL (6.4-8.2)
[2020-10-04 07:42] LABS: CREATINE KINASE, TOTAL 63 U/L (26-192); FERRITIN 350 ng/mL (8-388)
[2020-10-04 08:00] VITALS: BP 150/78
[2020-10-04 08:49] LABS: IRON, SERUM 67 ug/dl (50-175); TOTAL IRON BINDING CAPACITY 186 ug/dl (250-450)
[2020-10-04] MEDS: FLUTICASONE/VILANTEROL 1 EACH BLST.W.DEV IH SCH (09:00)
[2020-10-04] MEDS: FUROSEMIDE 20 MG TABLET PO SCH (10:50)
[2020-10-04] MEDS: ATORVASTATIN 40 MG TABLET PO SCH (10:50)
[2020-10-04] MEDS: METOPROLOL SUCCINATE 50 MG TAB.SR.24H PO SCH (10:50)
[2020-10-04] MEDS: ASPIRIN EC 81 MG TABLET.DR PO SCH (10:50)
[2020-10-04] MEDS: MEMANTINE HCL 5 MG TABLET PO SCH ×2 (10:51→17:12)
[2020-10-04] MEDS: PANTOPRAZOLE 40 MG TABLET.DR PO SCH (10:51)
[2020-10-04] MEDS: ESCITALOPRAM OXALATE (10 MG) 10 MG TABLET PO SCH (10:51)
[2020-10-04] MEDS: AMLODIPINE BESYLATE 5 MG TABLET PO SCH (10:51)
[2020-10-04] MEDS: BENAZEPRIL HCL 20 MG TABLET PO SCH (10:51)
[2020-10-04] MEDS: DEXAMETHASONE SOD PHOSPHATE 10 MG/ML VIAL IV SCH (10:52)
[2020-10-04] MEDS: ENOXAPARIN SODIUM 40 MG/0.4 ML DISP.SYRIN SQ SCH (10:53)
[2020-10-04] MEDS ORDERED: POTASSIUM CHLORIDE 20 MEQ TAB.PRT.SR PO SCH (11:30)
[2020-10-04 12:00] VITALS: BP 130/73
[2020-10-04] MEDS: REMDESIVIR (CHARGED) 100 MG in IV NS 0.9% 230 ML IV SCH (15:50)
[2020-10-04 16:00] VITALS: BP 136/84
[2020-10-04] MEDS ORDERED: ACETAMINOPHEN 325 MG TABLET PO ONE (19:30)
[2020-10-04] MEDS ORDERED: diphenhydrAMINE HCL 50 MG/ML VIAL IV ONE (19:30)
--- NOTE | 2020-10-04 19:34 | NUR ---
RN CLOSING NOTE PT RESTING IN BED, A/O X4, [place] SPEAKING. NO SOB OR ANY SIGNS OF RESPIRATORY DISTRESS NOTED. TEMI MIDLINE #18 INTACT, PATENT AND FLUSHED. NO PAIN REPORTED AT THIS TIME. SKIN IS INTACT. AMBULATORY WITH BRP. SAFETY MEASURES IMPLEMENTED. BED LOCKED AND AT LOWEST POSITION WITH SIDE RAILS UP X2. CALL LIGHT WITHIN REACH. WILL ENDORSE TO NIGHT NURSE FOR CUAUHTEMOC.
[2020-10-04 20:00] VITALS: BP 124/49
[2020-10-04] MEDS ORDERED: TOCILIZUMAB 400 MG in IV NS 0.9% 80 ML IV ONE (20:00)
[2020-10-04] MEDS ORDERED: diphenhydrAMINE HCL 50 MG/ML VIAL ONE (23:14)
[2020-10-05] VITALS (9 sets, daily range): BP systolic 116–160; BP diastolic 64–79
[2020-10-05] MEDS: FLUTICASONE PROPIONATE 16 GM BOTTLE NS SCH ×4 (00:20→18:11)
--- NOTE | 2020-10-05 05:49 | NUR ---
RN notes Resting comfortably in bed. Noted with difficulty of breathing. On 10lpm O2 via non-rebreather mask with O2sat of 94%. lung sounds with crackles upon auscultation. Alert and oriented, verbally able to communicate needs. Infused 1 bag of convalescent plasma, no adverse effect noted. Continent of bladder and bowel function. No complaint of pain or discomfort. Kept clean and dry. Will endorse to next shift for continuity of care.
[2020-10-05 05:55] LABS: EOSINOPHILS % (AUTO) 0.1 % (0.0-6.0); HEMATOCRIT 34 % (33-45); HEMOGLOBIN 11.3 g/dL (11.5-14.8); LYMPHOCYTES # (AUTO) 0.4 /CMM (0.8-4.8); LYMPHOCYTES % (AUTO) 10.2 % (20.0-44.0); MEAN CORPUSCULAR HGB CONC 34 g/dl (31.0-36.0); MEAN CORPUSCULAR VOLUME 83 fL (82-100); MONOCYTES # (AUTO) 0.4 /CMM (0.1-1.30); MONOCYTES % (AUTO) 10.4 % (2.0-12.0); NEUTROPHILS # (AUTO) 2.9 /CMM (1.8-8.9); NEUTROPHILS % (AUTO) 79.3 % (43.0-81.0); PLATELET COUNT (AUTO) 171 /CMM (150-450); RED BLOOD CELL COUNT(AUTO) 4.06 MIL/uL (4.0-5.2); WHITE BLOOD COUNT (AUTO) 3.7 K/uL (4.3-11.0)
[2020-10-05 06:20] LABS: ALANINE AMINOTRANSFERASE 43 U/L (12-78); ALBUMIN 2.5 g/dL (3.4-5.0); ALKALINE PHOSPHATASE 47 U/L (46-116); ASPARTATE AMINOTRANSFERASE 25 U/L (15-37); BILIRUBIN,DIRECT 0.2 mg/dL (0.0-0.2); BILIRUBIN,TOTAL 0.4 mg/dL (0.2-1.0); CALCIUM, SERUM 8.3 mg/dL (8.5-10.1); CARBON DIOXIDE 33 mmol/L (21-32); CHLORIDE 102 mmol/L (98-107); CREATININE 0.7 mg/dL (0.6-1.3); GLUCOSE 114 mg/dL (74-106); MAGNESIUM 1.9 mg/dL (1.8-2.4); PHOSPHORUS 3.3 mg/dL (2.5-4.9); POTASSIUM 3.6 mmol/L (3.5-5.1); SODIUM SERUM 139 mmol/L (136-145); TOTAL PROTEIN, SERUM 5.9 g/dL (6.4-8.2); UREA NITROGEN, BLOOD 20 mg/dL (7-18)
--- NOTE | 2020-10-05 08:00 | NUR ---
tele coding compliance manager: initial assessment received pt in bed awake, a/ox3; samoan speaking only. on non-rebreather mask at 10l/min, satting at 90%, increase to 15l/min and satting at 93%. r.t. at bedside and made aware. hob elevated. no apparent distress noted. will continue to monitor.
--- NOTE | 2020-10-05 08:30 | NUR ---
tele residential mortgage underwriter: nephro f/u seen by dr. stanford.
[2020-10-05] MEDS: FUROSEMIDE 20 MG TABLET PO SCH (09:59)
[2020-10-05] MEDS: MEMANTINE HCL 5 MG TABLET PO SCH ×2 (09:59→16:56)
[2020-10-05] MEDS: BENAZEPRIL HCL 20 MG TABLET PO SCH (09:59)
[2020-10-05] MEDS: ATORVASTATIN 40 MG TABLET PO SCH (09:59)
[2020-10-05] MEDS: AMLODIPINE BESYLATE 5 MG TABLET PO SCH (09:59)
[2020-10-05] MEDS: ESCITALOPRAM OXALATE (10 MG) 10 MG TABLET PO SCH (09:59)
[2020-10-05] MEDS: PANTOPRAZOLE 40 MG TABLET.DR PO SCH (09:59)
[2020-10-05] MEDS: FLUTICASONE/VILANTEROL 1 EACH BLST.W.DEV IH SCH (10:00)
[2020-10-05] MEDS: METOPROLOL SUCCINATE 50 MG TAB.SR.24H PO SCH (10:00)
[2020-10-05] MEDS: ASPIRIN EC 81 MG TABLET.DR PO SCH (10:00)
[2020-10-05] MEDS: ENOXAPARIN SODIUM 40 MG/0.4 ML DISP.SYRIN SQ SCH (10:01)
[2020-10-05] MEDS: DEXAMETHASONE SOD PHOSPHATE 10 MG/ML VIAL IV SCH (10:03)
--- NOTE | 2020-10-05 12:30 | NUR ---
tele brake engineer: funds transfer clerk f/u seen by irina (caleb) at this time.
--- NOTE | 2020-10-05 14:45 | NUR ---
tele hydrotherapist: md visit seen by dr. sim at this time.
--- NOTE | 2020-10-05 15:00 | NUR ---
tele drywall taper helper: pulmo f/u seen by dr. foss.
[2020-10-05 15:58] LABS: C-REACTIVE PROTEIN 2.8 mg/dL (0.0-0.9)
--- NOTE | 2020-10-05 16:00 | NUR ---
tele puzzle assembler: notes resting comfortable in bed. remains on non-rebreather mask at 15l/min, satting at 93%. hob elevated. will continue to monitor.
--- NOTE | 2020-10-05 18:30 | NUR ---
tele patient monitor: notes resting comfortable in bed. no s/s of acute distress noted. needs attended. will continue to monitor.
--- NOTE | 2020-10-05 19:20 | NUR ---
tele staff development coordinator rn: notes report given to telma pelaez) for continuity of care.
[2020-10-06 00:23] VITALS: BP 130/70
[2020-10-06] MEDS: FLUTICASONE PROPIONATE 16 GM BOTTLE NS SCH ×4 (00:52→19:01)
[2020-10-06 04:00] VITALS: BP 153/77
[2020-10-06 07:51] LABS: BASOPHILS % (AUTO) 0.1 % (0.0-2.0); EOSINOPHILS % (AUTO) 0.2 % (0.0-6.0); HEMATOCRIT 35 % (33-45); HEMOGLOBIN 11.8 g/dL (11.5-14.8); LYMPHOCYTES # (AUTO) 0.5 /CMM (0.8-4.8); LYMPHOCYTES % (AUTO) 10.5 % (20.0-44.0); MEAN CORPUSCULAR HGB CONC 34 g/dl (31.0-36.0); MEAN CORPUSCULAR VOLUME 82 fL (82-100); MONOCYTES # (AUTO) 0.5 /CMM (0.1-1.30); MONOCYTES % (AUTO) 9.8 % (2.0-12.0); NEUTROPHILS # (AUTO) 3.9 /CMM (1.8-8.9); NEUTROPHILS % (AUTO) 79.4 % (43.0-81.0); PLATELET COUNT (AUTO) 198 /CMM (150-450); RED BLOOD CELL COUNT(AUTO) 4.27 MIL/uL (4.0-5.2); WHITE BLOOD COUNT (AUTO) 4.9 K/uL (4.3-11.0)
[2020-10-06 08:00] VITALS: BP_SYST 154; BP_DIAS 74; BP_DIAS 77
--- NOTE | 2020-10-06 08:00 | NUR ---
television director initial assessment received pt in bed awake, a/ox3; welsh speaking only. on non-rebreather mask at 15L/min, satting at 90%, increase to 15l/min and satting at 91-94%. Denies any distress or pain. No s/s of SOB. On Isolation for Covid PCR + and Rapid + result. hob elevated. no apparent distress noted. will continue to monitor.Call light within reach.
[2020-10-06 08:44] LABS: CALCIUM, SERUM 8.3 mg/dL (8.5-10.1); CREATININE 0.7 mg/dL (0.6-1.3); POTASSIUM 3.8 mmol/L (3.5-5.1)
[2020-10-06] MEDS: MEMANTINE HCL 5 MG TABLET PO SCH ×2 (10:54→18:41)
[2020-10-06] MEDS: ENOXAPARIN SODIUM 40 MG/0.4 ML DISP.SYRIN SQ SCH (10:54)
[2020-10-06] MEDS: METOPROLOL SUCCINATE 50 MG TAB.SR.24H PO SCH (10:55)
[2020-10-06] MEDS: DEXAMETHASONE SOD PHOSPHATE 10 MG/ML VIAL IV SCH (10:55)
[2020-10-06] MEDS: ATORVASTATIN 40 MG TABLET PO SCH (10:55)
[2020-10-06] MEDS: ESCITALOPRAM OXALATE (10 MG) 10 MG TABLET PO SCH (10:56)
[2020-10-06] MEDS: BENAZEPRIL HCL 20 MG TABLET PO SCH (10:56)
[2020-10-06] MEDS: PANTOPRAZOLE 40 MG TABLET.DR PO SCH (10:56)
[2020-10-06] MEDS: ASPIRIN EC 81 MG TABLET.DR PO SCH (10:56)
[2020-10-06] MEDS: AMLODIPINE BESYLATE 5 MG TABLET PO SCH (10:56)
[2020-10-06] MEDS: FUROSEMIDE 20 MG TABLET PO SCH (10:56)
[2020-10-06] MEDS: FLUTICASONE/VILANTEROL 1 EACH BLST.W.DEV IH SCH (11:05)
[2020-10-06 12:00] VITALS: BP 135/60
[2020-10-06 15:48] LABS: C-REACTIVE PROTEIN 1.9 mg/dL (0.0-0.9)
[2020-10-06 16:00] VITALS: BP 127/67
--- NOTE | 2020-10-06 16:04 | NUR ---
SPOKE WITH LEILANI GRAND DAUGHTER OF PT. [phone],ALL THE FAMILY IN AGREEMENT TO TAKE PT. HOME AND WILL BE UNDER [facility] [phone] ONCE PT. ARRIVED HOME.EXPLAINED PT. ON HIGH OXYGEN LEVEL AND RISK OF DYING UPON TRANSPORT THUS DR. VELEZ ORDERED NEED TO BE AMA AND FAMILY HAS TO ARRANGE THEIR OWN TRANSPORT.FAMILY STILL INSISTED TO DO AMA VIA OONE CONVERSATION DESPITE EXPLAANATION OF RISK,CT SCAN TECHNICIAN ALSO EXPLAINED IT TO FAMILY.PRIMARY RN AWARE.
--- NOTE | 2020-10-06 20:00 | NUR ---
POWER CRANE OPERATOR NOTES PATIENT DISCHARGE HOME AMA; WITH STABLE VITAL SIGNS, ALERT ORIENTED X 4, NO ACUTE DISTRESS NOTED, BREATHING UNLABORED. DISCHARGE INSTRUCTIONS GIVEN TO THE FAMILY INCLUDING HEALTH TEACHING FOR COVID 19 ISOLATION, ISOLATION PRECAUTIONS AND INFECTION CONTROL ,VERBALIZED UNDERSTANDING. ALL BELONGINGS ACCOUNTED FOR. IV ACCESS REMOVED, NO REDNESS, NO BLEEDING, NO SWELLING NOTED. PICKED UP FAMILY IN STABLE CONDITION, FAMILY (DAUGHTER) SIGNED THE AMA FORM. SALES/MARKETING MADE AWARE.
== END 2020-10-06 20:03 | disposition left against medical advice (07) | DRG 177 ==
LOC: ER 13:53 → TELE1 18:33
PROVIDERS: ADMIT Nurse Practitioner Acute Care
PROC: 05H533Z Insertion of Infusion Device into Right Subclavian Vein, Percutaneous Approach (ICD-10-PCS; 2020-09-28)
PROC: B546ZZA Ultrasonography of Right Subclavian Vein, Guidance (ICD-10-PCS; 2020-09-28)
PROC: XW13325 Transfusion of Convalescent Plasma (Nonautologous) into Peripheral Vein, Percutaneous Approach, New Technology Group 5 (ICD-10-PCS; 2020-09-29)
PROC: XW033E5 Introduction of Remdesivir Anti-infective into Peripheral Vein, Percutaneous Approach, New Technology Group 5 (ICD-10-PCS; principal; 2020-09-30)
DX: U07.1 COVID-19 (principal); J96.01 Acute respiratory failure with hypoxia; J12.89 Other viral pneumonia; I50.32 Chronic diastolic (congestive) heart failure; D68.69 Other thrombophilia; E44.1 Mild protein-calorie malnutrition; D61.818 Other pancytopenia; E22.2 Syndrome of inappropriate secretion of antidiuretic hormone; I25.10 Atherosclerotic heart disease of native coronary artery without angina pectoris; F03.90 Unspecified dementia, unspecified severity, without behavioral disturbance, psychotic disturbance, mood disturbance, and anxiety; I11.0 Hypertensive heart disease with heart failure; E03.9 Hypothyroidism, unspecified; Z86.73 Personal history of transient ischemic attack (TIA), and cerebral infarction without residual deficits; Z90.49 Acquired absence of other specified parts of digestive tract; Z90.710 Acquired absence of both cervix and uterus; K76.0 Fatty (change of) liver, not elsewhere classified; F32.9 Major depressive disorder, single episode, unspecified; E78.5 Hyperlipidemia, unspecified; R53.1 Weakness; R73.9 Hyperglycemia, unspecified; I49.9 Cardiac arrhythmia, unspecified; E88.09 Other disorders of plasma-protein metabolism, not elsewhere classified; Z68.36 Body mass index [BMI] 36.0-36.9, adult; Z82.49 Family history of ischemic heart disease and other diseases of the circulatory system; I70.0 Atherosclerosis of aorta; R16.2 Hepatomegaly with splenomegaly, not elsewhere classified; D69.59 Other secondary thrombocytopenia
CPT/HCPCS: 36415; 71045-TC; 76700-TC; 80048-TC; 80053-TC; 80061-TC; 80076-TC; 82550-TC; 82728-TC; 82784; 83540-TC; 83605-TC; 83615-TC; 83735-TC; 84100-TC; 84155; 84165; 84443-TC; 84484-TC; 85025-TC; 85378-TC; 85385-TC; 85610-TC; 85730-TC; 86140-TC; 86225; 86235; 86334; 86431-TC; 86480; 86706; 86803; 86850-TC; 87040-TC; 87081-TC; 87340; 87899; A4216; C9803; G0378; J0456; J0696; J1100; J1200; J1650; J2405; J3262; J7030; J7040; J7050; J7060; P9017-BL; U0003